=== PATIENT | female | born 1940 | race Caucasian/White ===

== ENCOUNTER → 2017-12-17 | Outpatient (CLI) | payer MEDICARE ==
[2017-12-17 18:24] LABS: Hemoglobin A1C 6.4 % (4.0-6.0)
== END | disposition home or self-care (01) ==
LOC: LABWHC1 09:52
PROVIDERS: ATTEND Internal Medicine Critical Care Medicine
DX: E11.9 Type 2 diabetes mellitus without complications (principal)
CPT/HCPCS: 36415; 82947; 83036

== ENCOUNTER → 2018-07-08 | Outpatient (CLI) | payer MEDICARE ==
[2018-07-08 11:29] LABS: Basophils % (A) 1 %; Eosinophils # (A) 0.2 k/uL (0-0.7); Eosinophils % (A) 3 %; HCT 46.7 % (34.0-46.0); HGB 15.6 gm/dL (11.4-16.0); Lymphocytes # (A) 1.6 k/uL (1.0-4.8); Lymphocytes % (A) 32 %; MCH 30.1 pg (25.0-35.0); MCHC 33.5 g/dL (31.0-37.0); MCV 89.7 fL (80.0-100.0); Mean Platelet Volume 7.3; Monocytes # (A) 0.3 k/uL (0-1.0); Monocytes % (A) 6 %; Neutrophils # (A) 2.9 k/uL (1.3-7.7); Neutrophils % (A) 56 %; Platelet Count 154 k/uL (150-450); RDW 13.1 % (11.5-15.5); WBC 5.2 k/uL (3.8-10.6)
[2018-07-08 17:19] LABS: Albumin 4.3 g/dL (3.80-4.90); Albumin/Globulin Ratio 2.05 (1.20-2.10); Anion Gap 8.5 mmol/L (4.00-12.00); Calcium 9.7 mg/dL (8.7-10.3); Carbon Dioxide 27.5 mmol/L (21.6-31.8); Globulin 2.1 g/dL (2.1-3.7); LDL Cholesterol,Calculated 67.8 mg/dL (0.0-131.0); Potassium 4.1 mmol/L (3.5-5.5); Total Bilirubin 0.7 mg/dL (0.3-1.2); Total Protein 6.4 g/dL (6.2-8.2); VLDL Calculation 24.2 mg/dL (5.00-40.00)
[2018-07-08 17:26] LABS: T4, Free (Free Thyroxine) 1.1 ng/dL (0.80-1.80)
[2018-07-08 18:15] LABS: Hemoglobin A1C 6.3 % (4.0-6.0)
== END | disposition home or self-care (01) ==
LOC: LABWHC1 09:52
PROVIDERS: ATTEND Internal Medicine Critical Care Medicine
DX: Z00.00 Encounter for general adult medical examination without abnormal findings (principal); E78.5 Hyperlipidemia, unspecified; E11.9 Type 2 diabetes mellitus without complications; K21.9 Gastro-esophageal reflux disease without esophagitis; M81.0 Age-related osteoporosis without current pathological fracture
CPT/HCPCS: 36415; 80053; 80061; 82306; 83036; 84439; 84443; 85025

== ENCOUNTER → 2018-07-25 | Outpatient (CLI) | payer MEDICARE ==
--- NOTE | 2018-07-25 15:02 | MM ---
Reason for exam: additional evaluation requested from prior study. History: Patient is postmenopausal, history of high-risk lesion on a previous biopsy, and had first child at age 37. Family history of breast cancer in mother at age 45 and breast cancer in maternal aunt at age 60. Retro-pectoral silicone gel implants in both breasts, 2013. Physical Findings: Nurse did not find any significant physical abnormalities on exam. MG 3D Diag Mammo Imp W/Cad AIRAM Bilateral CC and MLO view(s) were taken. There are scattered fibroglandular densities. No suspicious calcifications or masses are seen. Implants are intact. These results were verbally communicated with the patient and result sheet given to the patient on 07/25/18. ASSESSMENT: Benign, BI-RAD 2 RECOMMENDATION: Routine screening mammogram of both breasts in 1 year.
== END | disposition home or self-care (01) ==
LOC: RADMAMWWP 14:02
PROVIDERS: ATTEND Internal Medicine Critical Care Medicine
DX: Z08 Encounter for follow-up examination after completed treatment for malignant neoplasm (principal); Z85.3 Personal history of malignant neoplasm of breast
CPT/HCPCS: 77066; G0279; 77062

== ENCOUNTER → 2019-06-24 | Outpatient (CLI) | payer MEDICARE ==
--- NOTE | 2019-06-24 15:53 | BD ---
EXAMINATION TYPE: Axial Bone Density DATE OF EXAM: 06/24/2019 COMPARISON: NONE CLINICAL HISTORY: 79 YR OLD FEMALE....ICD-10 CODE: M89.9 DISORDER OF BONE Height: 61.4 Weight: 131 FRAX RISK QUESTIONS: History of Fracture in Adulthood: YES RISK FACTORS HISTORY OF: HX OF THUMB FX AFTER AGE 51 Active: YES Postmenopausal woman: YES, AT ABOUT 51 YRS OLD If Premenopausal, do you have irregular periods: IN THE PAST FOR A WHILE, NONE NOW Lost more than 2 inches in height since high school: YES Hyperparathyroidism: NO Adrenal Insufficiency: NO MEDICATIONS: Prednisone or other steroids: FOR ILLNESSES ON AND OFF Additional Medications: METFORMIN, REFLUX MEDS, STATIN FOR CHOLESTEROL, CALCIUM X2 DAILY Additional History: DIABETIC, REFLUX COLESTEROL, EXAM MEASUREMENTS: Bone mineral densitometry was performed using the Apollidon System. Bone mineral density as measured about the Lumbar spine is: ----- L1-L4(G/cm2): 1.123 T Score Values are as follows: ----- L1: -0.4 ----- L2: -0.4 ----- L3: 0.3 ----- L4: -0.9 ----- L1-L4: -0.5 Bone mineral density FIRST DEXA STUDY AT [facility] Bone mineral density about the R hip (g/cm2): 0.917 Bone mineral density about the L hip (g/cm2): 0.889 T Score values are as follows: -----R Neck: -1.1 -----L Neck: -1.3 -----R Total: -0.7 -----L Total: -0.9 Bone mineral density FIRST DEXA AT [facility] FRAX%s: THERE IS A 17.7% CHANCE FOR A MAJOR OSTEOPOROTIC FX AND A 3.4% FOR HIP....PROBABILITY FOR F X IN 10 YRS TIME IMPRESSION: No evidence for osteoporosis or osteopenia at this time. NOTE: T-SCORE=SD OF THE YOUNG ADULT MEAN.
== END | disposition home or self-care (01) ==
LOC: RADBDWWP 14:48
PROVIDERS: ATTEND Obstetrics & Gynecology
DX: M89.9 Disorder of bone, unspecified (principal)
CPT/HCPCS: 77080

== ENCOUNTER → 2019-07-01 | Outpatient (CLI) | payer MEDICARE ==
[2019-07-01 11:13] LABS: Basophils % (A) 1 %; Eosinophils # (A) 0.1 k/uL (0-0.7); Eosinophils % (A) 3 %; HCT 46.7 % (34.0-46.0); HGB 15.4 gm/dL (11.4-16.0); Lymphocytes # (A) 1.5 k/uL (1.0-4.8); Lymphocytes % (A) 39 %; MCV 90.9 fL (80.0-100.0); Mean Platelet Volume 6.9; Monocytes # (A) 0.2 k/uL (0-1.0); Monocytes % (A) 6 %; Neutrophils # (A) 1.8 k/uL (1.3-7.7); Neutrophils % (A) 47 %; Platelet Count 189 k/uL (150-450); RBC 5.14 m/uL (3.80-5.40); RDW 12.5 % (11.5-15.5); WBC 3.8 k/uL (3.8-10.6)
[2019-07-01 19:38] LABS: African American GFR (CKD) 96.2 (60.0-200.0); Albumin 4.5 g/dL (3.80-4.90); Albumin/Globulin Ratio 2.14 (1.60-3.17); Anion Gap 7.7 mmol/L (4.00-12.00); BUN/Creat Ratio 27.14 Ratio (12.00-20.00); Calcium 9.7 mg/dL (8.7-10.3); Carbon Dioxide 27.3 mmol/L (21.6-31.8); Chol/HDL Ratio 2.75; Globulin 2.1 g/dL (1.6-3.3); LDL Cholesterol,Calculated 69.2 mg/dL (0.0-131.0); Potassium 3.9 mmol/L (3.5-5.5); Total Bilirubin 0.8 mg/dL (0.2-1.2); Total Protein 6.6 g/dL (6.2-8.2); VLDL Calculation 21.8 mg/dL (5.00-40.00)
[2019-07-01 22:45] LABS: Hemoglobin A1C 6.3 % (4.0-6.0)
== END ==
LOC: LABWHC1 10:07
PROVIDERS: ATTEND Internal Medicine Critical Care Medicine
DX: Z00.00 Encounter for general adult medical examination without abnormal findings (principal); G47.00 Insomnia, unspecified; E11.9 Type 2 diabetes mellitus without complications; K21.9 Gastro-esophageal reflux disease without esophagitis; M19.90 Unspecified osteoarthritis, unspecified site; E78.5 Hyperlipidemia, unspecified; M81.0 Age-related osteoporosis without current pathological fracture
CPT/HCPCS: 36415; 80053; 80061; 82306; 83036; 84439; 84443; 85025

== ENCOUNTER → 2020-03-22 | Outpatient (CLI) | payer MEDICARE ==
--- NOTE | 2020-03-23 06:48 | MR ---
EXAMINATION TYPE: MR knee LT wo con DATE OF EXAM: 03/22/2020 COMPARISON: Outside left knee x-ray March 16, 2020. HISTORY: L knee pain per order. Pain for 6 weeks after working in garden per patient. TECHNIQUE: Multiplanar, multisequence images of the knee is performed without IV contrast. FINDINGS: MEDIAL MENISCUS: Medial extrusion medial meniscus on coronal images. Anterior horn is intact without tear. Posterior horn shows triangular shaped increased signal extends towards central body involving the inferior articular surface sagittal image 24. LATERAL MENISCUS: Anterior and posterior horns are intact without tear. CRUCIATE LIGAMENTS: The anterior and posterior cruciate ligaments are intact and unremarkable. COLLATERAL LIGAMENTS: The medial collateral ligament and lateral collateral ligament complex are inta ct and unremarkable. EXTENSOR MECHANISM: Visualized quadriceps and patellar tendons are intact. EFFUSION: No significant suprapatellar joint effusion. POPLITEAL CYST: Small popliteal/brewer cyst. TRICOMPARTMENT SPACES: Moderate borderline severe patellofemoral compartment narrowing with mild to m oderate spurring. Mild to moderate medial and lateral tibial femoral compartment narrowing and spurri ng. CARTILAGE: Significant chondromalacia patella with full-thickness cartilaginous loss greatest over th e medial aspect of the posterior patellar pole. BONE MARROW SIGNAL: Heterogeneous diminished T1 and increased T2 signal medial aspect posterior hogan lar pole noted at site of full-thickness cartilaginous loss.. OTHER: No additional significant abnormality is appreciated. IMPRESSION: 1. Full-thickness tear posterior horn of medial meniscus extending into central body. 2. 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 Fairly moderate degenerat brice changes medial tibiofemoral compartment. 3. Small popliteal cyst.
== END | disposition home or self-care (01) ==
LOC: RADMRIMAIN 13:21
PROVIDERS: ATTEND Orthopaedic Surgery
DX: S83.242A Other tear of medial meniscus, current injury, left knee, initial encounter (principal); M17.12 Unilateral primary osteoarthritis, left knee

== ENCOUNTER → 2020-04-02 | Outpatient (CLI) | payer MEDICARE ==
[2020-04-02 14:17] LABS: Basophils % (A) 1 %; Eosinophils # (A) 0.2 k/uL (0-0.7); Eosinophils % (A) 4 %; HCT 45.5 % (34.0-46.0); HGB 14.7 gm/dL (11.4-16.0); Lymphocytes # (A) 1.6 k/uL (1.0-4.8); Lymphocytes % (A) 36 %; MCHC 32.3 g/dL (31.0-37.0); Mean Platelet Volume 8.4; Monocytes # (A) 0.4 k/uL (0-1.0); Monocytes % (A) 8 %; Neutrophils # (A) 2.3 k/uL (1.3-7.7); Neutrophils % (A) 49 %; Platelet Count 161 k/uL (150-450); Potassium 4.5 mmol/L (3.5-5.1); RBC 5.05 m/uL (3.80-5.40); RDW 12.7 % (11.5-15.5); WBC 4.6 k/uL (3.8-10.6)
== END | disposition home or self-care (01) ==
LOC: LABPAT 12:08
PROVIDERS: ATTEND Orthopaedic Surgery
DX: Z01.818 Encounter for other preprocedural examination (principal); M23.92 Unspecified internal derangement of left knee
CPT/HCPCS: 80051; 85025; 93005

== ENCOUNTER 2020-04-15 12:35 | Day surgery (SDC) | payer MEDICARE ==
[2020-04-08 10:13] VITALS: BMI 22.1
--- NOTE | 2020-04-14 20:32 | HP ---
HISTORY AND PHYSICAL DATE OF SURGERY: 04/15/2020 Miriam Campuzano is a 79-year-old patient seen with progressive left knee pain. We discussed options for treatment. She elected to proceed with arthroscopy. Consent was obtained. PAST MEDICAL HISTORY: Hypertension, hyperlipidemia, [id number] diabetes. PAST SURGICAL HISTORY: Cholecystectomy. DAILY MEDICATIONS: Metformin, Tenormin, Zocor. ALLERGIES: CODEINE. SOCIAL HISTORY: She denies tobacco use. PHYSICAL EVALUATION OF THE LEFT KNEE: Range of motion is 0 to 130. There is mild effusion. Tenderness, medial joint line. Positive medial Fannie's. Ligaments are stable. Hip rotation without pain. Distal neurovascular exam intact. RADIOGRAPHS: Left knee radiographs revealed moderate osteoarthritis. MRI of the left knee revealed medial meniscal tear. IMPRESSION: 1. Internal derangement of the left knee with medial meniscal tear. 2. Hypertension. 3. Hyperlipidemia. PLAN: Left knee arthroscopy with partial meniscectomy and partial synovectomy and debridement. MMODL / IJN: [id number] /
[~2020-04-15 12:35] MED LIST: DEXAMETHASONE SOD PHOSPHATE 10 MG/ML 1 ML VIAL IV ONE; HYDROmorphone 0.5 MG/0.5 ML SYRINGE IVP PRN; LACTATED RINGERS 1,000 ML IV SCH; ONDANSETRON 4 MG/2 ML VIAL IVP ONE
[2020-04-15 13:09] LABS: Glucose,Whole Blood 126 mg/dL (75-99)
[2020-04-15] MEDS ORDERED: LIDOCAINE 1% (10MG/ML) FOR IV START INTRADERMA ONE (13:12)
[2020-04-15] MEDS ORDERED: LIDOCAINE 1% INJ 10MG/ML (20 ML MDV) ONE (13:18)
[2020-04-15] MEDS ORDERED: PROPOFOL 10 MG/ML 20 ML VIAL IV ONE (13:18)
[2020-04-15] MEDS ORDERED: MIDAZOLAM 2 MG/2 ML VIAL ONE (13:18)
[2020-04-15] MEDS ORDERED: fentaNYL (PF) 50 MCG/ML 2 ML AMP ONE (13:18)
[2020-04-15] MEDS ORDERED: BUPIVACAINE (PF) 0.25% 30 ML VIAL INTRAARTIC ONE (13:45)
[2020-04-15 14:11] VITALS: TEMP 97
--- NOTE | 2020-04-15 14:11 | P.OP ---
Date of Procedure: 04/15/20 Preoperative Diagnosis: Internal derangement left knee Postoperative Diagnosis: 1. Tear medial meniscus left knee 2. Grade 2/3 chondromalacia medial femoral condyle left knee 3. Reactive synovitis medial, lateral and suprapatellar compartments left knee Procedure(s) Performed: 1. Arthroscopic partial medial meniscectomy left knee 2. Arthroscopic chondroplasty medial femoral condyle left knee 3. Arthroscopic partial synovectomy medial, lateral and suprapatellar compartments left knee Anesthesia: GETA, local Surgeon: Elías Mckay Estimated Blood Loss (ml): 7 Pathology: none sent Condition: stable Disposition: PACU Indications for Procedure: 79-year-old patient seen with progressive left knee pain. After treatment options were discussed, she elected to proceed with arthroscopy. Operative Findings: See description of procedure Description of Procedure: Patient was taken to the operative suite. Patient underwent a general anesthetic by the department of anesthesia. Patient was given preoperative antibiotics. The left lower extremity was placed in a well-padded arthroscopic leg eduardo. The left leg was prepped and draped in the normal sterile orthopedic fashion. A lateral parapatellar and suprapatellar incision was made. Trochars were inserted. Arthroscopy was initiated. Suprapatellar pouch revealed diffuse thick reactive synovitis. The patellofemoral joint appeared to articulate congruently. There was grade 3 chondral malacia of the patella, no osteochondral tears were present.. The scope was guided into the medial gutter. No loose bodies or plica were identified. The scope was then guided into the medial compartment. A medial parapatellar incision was made. Trocar inserted followed by probe. There was a complex tear posterior horn and midbody medial meniscus. There were grade 2/3 chondromalacia changes of the medial femoral condyle with some osteochondral flap tears present. There was thick reactive synovitis anteriorly. I performed a partial medial meniscectomy. I performed a chondroplasty of the medial femoral condyle. I performed a partial synovectomy decompressing the reactive synovitis. The residual meniscus was stable. The residual osteochondral surface appeared stable. There was good decompression of the synovitis. Scope and probe were then guided into the intercondylar notch. Cruciates were identified, probed and found to be stable. The scope and probe were then guided into lateral compartment. There were grade 1 chondromalacia changes involving the lateral compartment with no osteochondral tears present. There was some mild fraying superficially of the midbody lateral meniscus. There was thick reactive synovitis anteriorly. A motorize shaver was introduced I debrided that mild fraying of the meniscus. I now performed a partial s ynovectomy decompressing reactive synovitis. Shaver was removed. There was good decompression of the synovitis. The scope was in guided back into the suprapatellar compartment. I introduced a motorized shaver into the super patellar compartment. I debrided some piecemeal fragments of meniscus I encountered. I performed a partial synovectomy decompressing reactive synovitis. The shaver was removed. I now took one more look on the entire knee, no residual debris. Instruments were now removed from the joint. The joint was infiltrated with .25% Marcaine. Steri-Strips were applied to the portal sites. Sterile dressings were applied. The patient was placed into a DAYDAY hose. No tourniquet was utilized. The patient was awakened, transferred to a bed and taken to recovery stable satisfactory condition.
[2020-04-15 15:03] VITALS: RESP 18
[2020-04-15 15:20] VITALS: BP 154/71; PULSE 73
== END 2020-04-15 15:35 | disposition home or self-care (01) ==
LOC: OR 12:35
PROVIDERS: ATTEND Orthopaedic Surgery
DX: S83.232A Complex tear of medial meniscus, current injury, left knee, initial encounter (principal); X58.XXXA Exposure to other specified factors, initial encounter; M22.42 Chondromalacia patellae, left knee; M65.862 Other synovitis and tenosynovitis, left lower leg; M23.362 Other meniscus derangements, other lateral meniscus, left knee; I10 Essential (primary) hypertension; E78.5 Hyperlipidemia, unspecified; E11.9 Type 2 diabetes mellitus without complications; Z79.84 Long term (current) use of oral hypoglycemic drugs; Z79.899 Other long term (current) drug therapy; Z88.5 Allergy status to narcotic agent; Z90.49 Acquired absence of other specified parts of digestive tract; Z90.13 Acquired absence of bilateral breasts and nipples; Z85.3 Personal history of malignant neoplasm of breast
CPT/HCPCS: 29881; 29876; J2250; J1100; J2405; J0690; J2001; J3010; J2704

== ENCOUNTER 2020-05-12 10:36 | Observation (INO) | payer MEDICARE ==
--- NOTE | 2020-05-12 10:46 | ED ---
Nausea/Vomiting/Diarrhea HPI - General Chief complaint: Nausea/Vomiting/Diarrhea Stated complaint: Diarrhea Time Seen by Provider: 05/12/20 10:46 Source: patient Mode of arrival: ambulatory Limitations: no limitations - History of Present Illness Initial comments: Patient is a 79-year-old female presenting to the emergency department with a chief complaint of abdominal cramping and diarrhea. Patient states 5 days ago she finished a ten-day course of Augmentin following a tooth extraction. States she was also eating bland food for about 2 weeks and when she finished the Augmentin on Sunday, she also ate potato wedges for the first time and soon a fter developed diarrhea. Patient reports she has been having diarrhea for approximately 5 days. Does report some improvement yesterday although it returned today. Patient does report taking [id number] Imodium and Pepto- Bismol with minimal improvement of symptoms. She also reports abdominal cramping sensation going across the abdomen. Patient states the diarrhea has turned slightly more solid over the last few days. States the diarrhea is yellowish and has a foul smell. Denies hematuria, hematochezia or melena. Denies any nausea or vomiting. Denies any vaginal or urinary symptoms. Denies chest pain, back pain, shortness of breath. Denies any night sweats fevers or chills. Surgical history of appendectomy. - Related Data Home Medications Medication Instructions Recorded Confirmed Calcium Carbonate/Vitamin D3 1 tab PO DAILY 06/18/17 05/12/20 [Calcium 500-Vit D3 600 Tablet] Simvastatin [Zocor] 20 mg PO Q48H 06/18/17 05/12/20 Zolpidem [Ambien] 10 mg PO HS 06/18/17 05/12/20 atenoloL [Tenormin] 25 mg PO DAILY 06/18/17 05/12/20 metFORMIN HCL [Glucophage] 750 mg PO BID 06/18/17 05/12/20 Cetirizine HCl [Zyrtec] 10 mg PO DAILY 04/08/20 05/12/20 Ibuprofen [Motrin Ib] 200 - 400 mg PO Q6H PRN 04/08/20 05/12/20 Multivit-Min/Iron/Folic/Lutein 1 tab PO DAILY 04/08/20 05/12/20 [Centrum Silver Women Tablet] Allergies Allergy/AdvReac Type Severity Reaction Status Date / Time codeine AdvReac Nausea & Verified 05/12/20 11:50 Vomiting Review of Systems ROS Statement: Those systems with pertinent positive or pertinent negative responses have been documented in the HPI. ROS Other: All systems not noted in ROS Statement are negative. Past Medical History Past Medical History: Diabetes Mellitus, Hyperlipidemia, Hypertension History of Any Multi-Drug Resistant Organisms: None Reported Past Surgical History: Appendectomy Additional Past Surgical History / Comment(s): Bilateral Mastectomy 1995, L knee surgery, oral surgery Past Anesthesia/Blood Transfusion Reactions: No Reported Reaction Past Psychological History: No Psychological Hx Reported Smoking Status: Former smoker Past Alcohol Use History: None Reported Past Drug Use History: None Reported General Exam Limitations: no limitations General appearance: alert, in no apparent distress Head exam: Present: atraumatic, normocephalic, normal inspection Eye exam: Present: normal appearance, PERRL, EOMI Pupils: Present: normal accommodation ENT exam: Present: normal exam, normal oropharynx, mucous membranes dry, mucous membranes moist Neck exam: Present: normal inspection, full ROM. Absent: tenderness Respiratory exam: Present: normal lung sounds bilaterally. Absent: respiratory distress, wheezes, rales Cardiovascular Exam: Present: regular rate, normal rhythm, normal heart sounds GI/Abdominal exam: Present: soft, tenderness (Mild diffuse pain across the abdomen). Absent: distended, guarding, rebound, rigid Extremities exam: Present: normal inspection, full ROM, normal capillary refill. Absent: tenderness Back exam: Present: normal inspection, full ROM. Absent: tenderness, CVA te nderness (R), CVA tenderness (L) Neurological exam: Present: alert, oriented X3, normal gait Psychiatric exam: Present: normal affect, normal mood Skin exam: Present: warm, dry, intact, normal color Course Vital Signs 05/12/20 10:38 Temperature 98.4 F Pulse Rate 91 Respiratory 18 Rate Blood Pressure 135/72 O2 Sat by Pulse 97 Oximetry - Reevaluation(s) Reevaluation #1: 05/12/20 11:21 Medical record reviewed 05/12/20 11:21 Medical Decision Making - Medical Decision Making Patient is a 79-year-old female presenting to the emergency department with a chief complaint of diarrhea and abdominal pain. On physical examination, she has some diffuse abdominal pain. There is a concern for possible C. diff considering the patient has been taking antibiotics for about 2 weeks prior to the onset of symptoms. CBC CMP is unremarkable. She was given IV fluids. CT of abdomen and pelvis reveals colitis. Patient is not able to give a stool sample at this time. Patient will be admitted for further medical management. Case discussed with Dr. Gomez. Admitted physician is Dr.Sheet HARO on consult - Lab Data Result diagrams: 05/12/20 11:13 05/12/20 11:13 Lab Results 05/12/20 05/12/20 05/12/20 Range/Units 11:13 11:13 11:13 WBC 8.6 (3.8-10.6) k/uL RBC 4.94 (3.80-5.40) m/uL Hgb 14.4 (11.4-16.0) gm/dL Hct 44.2 (34.0-46.0) % MCV 89.6 (80.0-100.0) fL MCH 29.2 (25.0-35.0) pg MCHC 32.6 (31.0-37.0) g/dL RDW 13.1 (11.5-15.5) % Plt Count 239 (150-450) k/uL Neutrophils % 73 % Lymphocytes % 15 % Monocytes % 8 % Eosinophils % 2 % Basophils % 0 % Neutrophils # 6.2 (1.3-7.7) k/uL Lymphocytes # 1.3 (1.0-4.8) k/uL Monocytes # 0.7 (0-1.0) k/uL Eosinophils # 0.2 (0-0.7) k/uL Basophils # 0.0 (0-0.2) k/uL Sodium 137 (137-145) mmol/L Potassium 3.6 (3.5-5.1) mmol/L Chloride 105 (98-107) mmol/L Carbon Dioxide 24 (22-30) mmol/L Anion Gap 8 mmol/L BUN 13 (7-17) mg/dL Creatinine 0.59 (0.52-1.04) mg/dL Est GFR (CKD-EPI)AfAm >90 (>60 ml/min/1.73 sqM) Est GFR (CKD-EPI)NonAf 88 (>60 ml/min/1.73 sqM) Glucose 138 H (74-99) mg/dL Calcium 9.2 (8.4-10.2) mg/dL Total Bilirubin 0.6 (0.2-1.3) mg/dL AST 21 (14-36) U/L ALT 12 (4-34) U/L Alkaline Phosphatase 78 (38-126) U/L Troponin I (0.000-0.034) ng/mL Total Protein 6.5 (6.3-8.2) g/dL Albumin 3.8 (3.5-5.0) g/dL Lipase 33 (23-300) U/L Urine Color Yellow Urine Appearance Clear (Clear) Urine pH 5.5 (5.0-8.0) Ur Specific [place] 1.015 (1.001-1.035) Urine Protein Negative (Negative) Urine Glucose (UA) Negative (Negative) Urine Ketones 1+ H (Negative) Urine Blood Trace H (Negative) Urine Nitrite Negative (Negative) Urine Bilirubin Negative (Negative) Urine Urobilinogen <2.0 (<2.0) mg/dL Ur Leukocyte Esterase Large H (Negative) Urine RBC 1 (0-5) /hpf Urine WBC 4 (0-5) /hpf Ur Squamous Epith Cells 2 (0-4) /hpf Urine Bacteria Rare H (None) /hpf Hyaline Casts 7 H (0-2) /lpf Urine Mucus Moderate H (None) /hpf 10/14/20 Range/Units 11:13 WBC (3.8-10.6) k/uL RBC (3.80-5.40) m/uL Hgb (11.4-16.0) gm/dL Hct (34.0-46.0) % MCV (80.0-100.0) fL MCH (25.0-35.0) pg MCHC (31.0-37.0) g/dL RDW (11.5-15.5) % Plt Count (150-450) k/uL Neutrophils % % Lymphocytes % % Monocytes % % Eosinophils % % Basophils % % Neutrophils # (1.3-7.7) k/uL Lymphocytes # (1.0-4.8) k/uL Monocytes # (0-1.0) k/uL Eosinophils # (0-0.7) k/uL Basophils # (0-0.2) k/uL Sodium (137-145) mmol/L Potassium (3.5-5.1) mmol/L Chloride (98-107) mmol/L Carbon Dioxide (22-30) mmol/L Anion Gap mmol/L BUN (7-17) mg/dL Creatinine (0.52-1.04) mg/dL Est GFR (CKD-EPI)AfAm (>60 ml/min/1.73 sqM) Est GFR (CKD-EPI)NonAf (>60 ml/min/1.73 sqM) Glucose (74-99) mg/dL Calcium (8.4-10.2) mg/dL Total Bilirubin (0.2-1.3) mg/dL AST (14-36) U/L ALT (4-34) U/L Alkaline Phosphatase (38-126) U/L Troponin I <0.012 (0.000-0.034) ng/mL Total Protein (6.3-8.2) g/dL Albumin (3.5-5.0) g/dL Lipase (23-300) U/L Urine Color Urine Appearance (Clear) Urine pH (5.0-8.0) Ur Specific [place] (1.001-1.035) Urine Protein (Negative) Urine Glucose (UA) (Negative) Urine Ketones (Negative) Urine Blood (Negative) Urine Nitrite (Negative) Urine Bilirubin (Negative) Urine Urobilinogen (<2.0) mg/dL Ur Leukocyte Esterase (Negative) Urine RBC (0-5) /hpf Urine WBC (0-5) /hpf Ur Squamous Epith Cells (0-4) /hpf Urine Bacteria (None) /hpf Hyaline Casts (0-2) /lpf Urine Mucus (None) /hpf - EKG Data EKG Comments: Sinus rhythm and no ST or T-wave changes. Ventricular rate 78, GA 136, QRS 86, QTC 424. Disposition Clinical Impression: Colitis, Abdominal pain, Diarrhea Disposition: ADMITTED IP TO THIS HOSP Condition: Good Instructions (If sedation given, give patient instructions): Abdominal Pain (ED) Is patient prescribed a controlled substance at d/c from ED?: No Referrals: Magen Patterson DO [Primary Care Provider] - 1-2 days Time of Disposition: 13:25
[2020-05-12] MEDS ORDERED: SODIUM CHLORIDE 0.9% 1,000 ML IV STA (10:47)
[2020-05-12 12:04] LABS: Basophils % (A) 0 %; Eosinophils # (A) 0.2 k/uL (0-0.7); Eosinophils % (A) 2 %; HCT 44.2 % (34.0-46.0); HGB 14.4 gm/dL (11.4-16.0); Lymphocytes # (A) 1.3 k/uL (1.0-4.8); Lymphocytes % (A) 15 %; MCH 29.2 pg (25.0-35.0); MCHC 32.6 g/dL (31.0-37.0); MCV 89.6 fL (80.0-100.0); Mean Platelet Volume 7.2; Monocytes # (A) 0.7 k/uL (0-1.0); Monocytes % (A) 8 %; Neutrophils # (A) 6.2 k/uL (1.3-7.7); Neutrophils % (A) 73 %; Platelet Count 239 k/uL (150-450); RBC 4.94 m/uL (3.80-5.40); RDW 13.1 % (11.5-15.5); WBC 8.6 k/uL (3.8-10.6)
[2020-05-12 12:11] LABS: ALT 12 U/L (4-34); AST 21 U/L (14-36); African American GFR (CKD) >90 (>60 ml/min/1.73 sqM); Albumin 3.8 g/dL (3.5-5.0); Alkaline Phosphatase 78 U/L (38-126); Anion Gap 8 mmol/L; Blood Urea Nitrogen 13 mg/dL (7-17); Calcium 9.2 mg/dL (8.4-10.2); Carbon Dioxide 24 mmol/L (22-30); Chloride 105 mmol/L (98-107); Glucose 138 mg/dL (74-99); Lipase 33 U/L (23-300); Non-African American GFR(CKD) 88 (>60 ml/min/1.73 sqM); Potassium 3.6 mmol/L (3.5-5.1); Sodium 137 mmol/L (137-145); Total Bilirubin 0.6 mg/dL (0.2-1.3); Total Protein 6.5 g/dL (6.3-8.2)
[2020-05-12 12:22] LABS: Appearance,Urine Clear (Clear); Bacteria,Urine Rare /hpf; Bilirubin,Urine Negative (Negative); Blood,Urine Trace (Negative); Color,Urine Yellow; Glucose,Urine (UA) Negative (Negative); Hyaline Casts,Urine 7 /lpf (0-2); Ketones,Urine 1+ (Negative); Leukocyte Esterase,Urine Large (Negative); Mucus,Urine Moderate /hpf; Nitrite,Urine Negative (Negative); PH, Urine 5.5 (5.0-8.0); Protein,Urine Negative (Negative); RBC,Urine 1 /hpf (0-5); Specific Gravity,Urine 1.015 (1.001-1.035); Squamous Epithelial Cell,Urine 2 /hpf (0-4); Urobilinogen,Urine <2.0 mg/dL (<2.0); WBC,Urine 4 /hpf (0-5)
--- NOTE | 2020-05-12 13:03 | CT ---
EXAMINATION TYPE: CT abdomen pelvis w con DATE OF EXAM: 05/12/2020 COMPARISON: Pain HISTORY: diarrhea, mid abdominal pain CT DLP: 690.5 mGycm Automated exposure control for dose reduction was used. CONTRAST: CT scan of the abdomen pelvis is performed with IV Contrast, patient injected with 100 mL of Isovue 3 70. FINDINGS- LUNG BASES-emphysematous changes at the lung bases with areas of subsegmental consolidation most typi vinay of atelectasis.. LIVER/GB- No gross abnormality is appreciated surgical clips in the gallbladder fossa.. PANCREAS- No gross abnormality is seen. SPLEEN-splenic granuloma are seen here. Small hypodensities within the spleen are too small to charac terize.. ADRENALS- No gross abnormality is seen. KIDNEYS/BLADDER- no hydronephrosis or nephrolithiasis. Hypodensities within the kidneys are too small to characterize. BOWEL-there is diffuse colonic wall thickening with mild pericolonic inflammatory change correlate fo r a colitis. The SMA and SMV are intact. No moderate-sized hiatal hernia. Surgical clips near the cec um correlate for previous appendectomy. LYMPH NODES- No greater than 1cm abdominal or pelvic lymph nodes areappreciated. OSSEOUS STRUCTURES-severe degenerative disc disease with hypertrophic spurring at multiple levels.. OTHER- aorta of normal caliber. No free fluid or free air. Small periumbilical fat-containing hernia . IMPRESSION- 1. Few is colonic wall thickening with inflammatory changes correlate for colitis. Differential diagn osis would include infectious colitis, inflammatory bowel disease, although ischemic colitis not excl uded. The SMA does appear to enhance normally correlate clinically. 2. Splenic granuloma with subcentimeter hypodensities too small to characterize could be followed wit h ultrasound. 3. Hiatal hernia.
[2020-05-12] MEDS ORDERED: NALOXONE 0.4 MG/ML 1 ML VIAL IV PRN (13:25)
[2020-05-12] MEDS ORDERED: LORazepam 2 MG/ML INJ IV PRN (13:25)
[2020-05-12] MEDS ORDERED: ONDANSETRON 4 MG/2 ML VIAL IVP PRN (13:25)
[2020-05-12] MEDS ORDERED: MORPHINE SULFATE 2 MG/ML SYRINGE IVP PRN (13:29)
[2020-05-12] MEDS: SODIUM CHLORIDE 0.9% 1,000 ML IV SCH (13:58)
[2020-05-12 16:42] LABS: Glucose,Whole Blood 147 mg/dL (75-99)
[2020-05-12] MEDS: HEPARIN SODIUM,PORCINE 5,000 UNIT/ML 1 ML VIAL SQ SCH (20:55)
[2020-05-12] MEDS ORDERED: FAMOTIDINE 20 MG/2 ML VIAL IV SCH (21:00)
[2020-05-12] MEDS ORDERED: ZOLPIDEM 10 MG TAB PO SCH (21:00)
[2020-05-12 21:30] LABS: Glucose,Whole Blood 143 mg/dL (75-99)
[2020-05-12] MEDS ORDERED: VANCOMYCIN 125 MG CAPSULE PO ONE (21:30)
--- NOTE | 2020-05-12 21:43 | P.HPIM ---
History of Present Illness this is a pleasant 79 years old Females with multiple medical problems as below presents with five days of abdominal pain . her pain mainly willy-umbilical , felt like cramping associated with bowel movements , about 8/10 in severity. associated with 3-4 loose bowel movements per day. no blood in stool with some nausea. no postural symptoms . pt was recently treated with antibiotic for her right upper teeth infection and root canal treatment . also about one one month ago she was treated for left knee medial meniscal tear, she is status post partial medial meniscectomy left knee pt denies smoking , alcohol or illicit drugs. Review of Systems CONSTITUTIONAL: No fever, no malaise, no fatigue. HEENT: No recent visual problems or hearing problems. Denied any sore throat. CARDIOVASCULAR: No orthopnea, PND, no palpitations, no syncope. PULMONARY: No shortness of breath, no cough, no hemoptysis. -GASTROINTESTINAL: as above NEUROLOGICAL: No headaches, no weakness, no numbness. HEMATOLOGICAL: Denies any bleeding or petechiae. GENITOURINARY: Denies any burning micturition, frequency, or urgency. MUSCULOSKELETAL/RHEUMATOLOGICAL: Denies any joint pain, swelling, or any muscle pain. ENDOCRINE: Denies any polyuria or polydipsia. Past Medical History Past Medical History: Diabetes Mellitus, Hyperlipidemia, Hypertension History of Any Multi-Drug Resistant Organisms: None Reported Past Surgical History: Appendectomy Additional Past Surgical History / Comment(s): Bilateral Mastectomy 1995, L knee surgery, oral surgery Past Anesthesia/Blood Transfusion Reactions: No Reported Reaction Past Psychological History: No Psychological Hx Reported Smoking Status: Former smoker Past Alcohol Use History: None Reported Past Drug Use History: None Reported - Past Family History Mother Family Medical History: Cancer Additional Family Medical History / Comment(s): Mother had bilateral breast cancer at the age of 48yrs and from this at the age of 54yrs. Medications and Allergies Home Medications Medication Instructions Recorded Confirmed Type Calcium Carbonate/Vitamin D3 1 tab PO DAILY 06/18/17 05/12/20 History [Calcium 500-Vit D3 600 Tablet] Simvastatin [Zocor] 20 mg PO Q48H 06/18/17 05/12/20 History Zolpidem [Ambien] 10 mg PO HS 06/18/17 05/12/20 History atenoloL [Tenormin] 25 mg PO DAILY 06/18/17 05/12/20 History metFORMIN HCL [Glucophage] 750 mg PO BID 06/18/17 05/12/20 History Cetirizine HCl [Zyrtec] 10 mg PO DAILY 04/08/20 05/12/20 History Ibuprofen [Motrin Ib] 200 - 400 mg PO Q6H PRN 04/08/20 05/12/20 History Multivit-Min/Iron/Folic/Lutein 1 tab PO DAILY 04/08/20 05/12/20 History [Centrum Silver Women Tablet] Allergies Allergy/AdvReac Type Severity Reaction Status Date / Time codeine AdvReac Nausea & Verified 05/12/20 11:50 Vomiting Physical Exam Vitals: Vital Signs Temp Pulse Resp BP Pulse Ox 05/12/20 10:38 98.4 F 91 18 135/72 97 Intake and Output 05/11/20 05/12/20 05/12/20 22:59 06:59 14:59 Other: Voiding Method Toilet Weight 55.338 kg GENERAL: The patient is alert and oriented x3, not in any acute distress. Well developed, well nourished. HEENT: Pupils are round and equally reacting to light. EOMI. No scleral icterus. No conjunctival pallor. Normocephalic, atraumatic. No pharyngeal erythema. No thyromegaly. CARDIOVASCULAR: S1 and S2 present. No murmurs, rubs, or gallops. PULMONARY: Chest is clear to auscultation, no wheezing or crackles. -ABDOMEN: Soft,periumbilical tenderness, no rebound tenderness or guarding, nondistended, normoactive bowel sounds. No palpable organomegaly. MUSCULOSKELETAL: No joint swelling or deformity. EXTREMITIES: No cyanosis, clubbing, or pedal edema. NEUROLOGICAL: Gross neurological examination did not reveal any focal deficits. SKIN: No rashes. No petechiae Results CBC & Chem 7: 05/12/20 11:13 05/12/20 11:13 Labs: Abnormal Lab Results - Last 24 Hours (Table) 05/12/20 05/12/20 Range/Units 11:13 11:13 Glucose 138 H (74-99) mg/dL Urine Ketones 1+ H (Negative) Urine Blood Trace H (Negative) Ur Leukocyte Esterase Large H (Negative) Urine Bacteria Rare H (None) /hpf Hyaline Casts 7 H (0-2) /lpf Urine Mucus Moderate H (None) /hpf Assessment and Plan Assessment: c. diff colitis recent history of dental procedure of her right upper tooth recent history of left knee medial meniscal tear, status post partial medial meniscectomy left knee diabetes mellitus hyperlipidemia hypertension osteoarthritis Plan: this is a pleasant 79 yo F who presents with c diff colitis , continue with oral vancomycin, GI and Surgical consult, iv fluid Labs and medication were reviewed.. Continue same treatment. Continue with symptomatic treatment. Resume home medication. Monitor lytes and vitals. DVT and GI prophylaxis. Further recommendations depends on the clinical course of the patient DVT prophylaxis: Subcutaneous heparin GI Prophylaxis: Ppi PT/OT: Pending Prognosis is guarded
[2020-05-12] MEDS ORDERED: CHERRY FLAVOR 60 ML BOTTLE PO SCH (22:00)
[2020-05-12] MEDS ORDERED: VANCOMYCIN 125 MG CAPSULE PO SCH (22:00)
[2020-05-12] MEDS: ZOLPIDEM 5 MG TAB PO SCH (22:42)
[2020-05-13] MEDS: SODIUM CHLORIDE 0.9% 1,000 ML IV SCH ×2 (02:07→15:56)
[2020-05-13 06:05] LABS: Glucose,Whole Blood 109 mg/dL (75-99)
[2020-05-13] MEDS: VANCOMYCIN 125 MG CAPSULE PO SCH ×4 (06:07→22:34)
[2020-05-13] MEDS ORDERED: ATORVASTATIN 10 MG TAB PO SCH (09:00)
[2020-05-13] MEDS ORDERED: PANTOPRAZOLE 40 MG/10 ML VIAL IVP SCH (09:00)
--- NOTE | 2020-05-13 09:10 | P.PN ---
Subjective this is a pleasant 79 years old Females with multiple medical problems as below presents with five days of abdominal pain . her pain mainly willy-umbilical , felt like cramping associated with bowel movements , about 8/10 in severity. associated with 3-4 loose bowel movements per day. no blood in stool with some nausea. no postural symptoms . pt was recently treated with antibiotic for her right upper teeth infection and root canal treatment . also about one one month ago she was treated for left knee medial meniscal tear, she is status post partial medial meniscectomy left knee pt denies smoking , alcohol or illicit drugs. 05/13/20 patient is awake alert, no distress. She presents with sepsis and diarrhea found to have C. diff colitis with this came back positive and patient was started on oral vancomycin yesterday to 250 mg scheduled. last night she had 2-3 bouts of diarrhea and one this morning, patient states that whenever she eats she has a bowel movement.she has crampy abdominal pain about 6/10 that comes on with bowel movement and is is down after that and resolves. she is tolerating simple diet at no nausea vomiting.labs from today are pending. GI and surgery teams on the case Review of Systems CONSTITUTIONAL: No fever, no malaise, no fatigue. HEENT: No recent visual problems or hearing problems. Denied any sore throat. CARDIOVASCULAR: No orthopnea, PND, no palpitations, no syncope. PULMONARY: No shortness of breath, no cough, no hemoptysis. -GASTROINTESTINAL: as above NEUROLOGICAL: No headaches, no weakness, no numbness. HEMATOLOGICAL: Denies any bleeding or petechiae. GENITOURINARY: Denies any burning micturition, frequency, or urgency. MUSCULOSKELETAL/RHEUMATOLOGICAL: Denies any joint pain, swelling, or any muscle pain. ENDOCRINE: Denies any polyuria or polydipsia. Active Medications Generic Name Dose Route Start Last Admin Trade Name Freq PRN Reason Stop Dose Admin Atenolol 25 mg 05/13/20 09:00 Atenolol 25 Mg Tab PO DAILY [facility] Atorvastatin Calcium 10 mg 05/13/20 09:00 Atorvastatin 10 Mg Tab PO Q48H [facility] Calcium Carbonate 1 each 05/13/20 09:00 Calcium Carb-Vit D 500mg-200un 1 Each Tab PO DAILY [facility] Cholestyramine Resin 4 gm 05/13/20 10:00 Cholestyramine (With Sugar) 4 Gm Packet PO BID@1000,1800 [facility] Heparin Sodium (Porcine) 5,000 unit 05/12/20 21:00 05/12/20 20:55 Heparin Sodium,Porcine 5,000 Unit/Ml 1 Ml Vial SQ 5,000 unit Q12HR JOSUÉ Administration Sodium Chloride 1,000 mls @ 75 mls/hr 05/12/20 13:30 05/13/20 02:07 Saline 0.9% IV 75 mls/hr .[id number] JOSUÉ Administration Loratadine 10 mg 05/13/20 09:00 Loratadine 10 Mg Tab PO DAILY [facility] Lorazepam 0.5 mg 05/12/20 13:25 Lorazepam 2 Mg/Ml Inj IV Q6HR PRN Anxiety Morphine Sulfate 2 mg 05/12/20 13:29 Morphine Sulfate 2 Mg/Ml Syringe IVP Q4H PRN Pain/Discomfort Multivitamins 1 each 05/13/20 09:00 Multivitamins, Thera 1 Each Tab PO DAILY [facility] Naloxone HCl 0.2 mg 05/12/20 13:25 Naloxone 0.4 Mg/Ml 1 Ml Vial IV Q2M PRN Opioid Reversal Ondansetron HCl 4 mg 05/12/20 13:25 Ondansetron 4 Mg/2 Ml Vial IVP Q8HR PRN Nausea And Vomiting Pantoprazole Sodium 40 mg 05/13/20 09:00 Pantoprazole 40 Mg/10 Ml Vial IVP DAILY [facility] Vancomycin HCl 250 mg 05/13/20 06:00 05/13/20 06:07 Vancomycin 125 Mg Capsule PO 250 mg QID JOSUÉ Administration Zolpidem Tartrate 10 mg 05/12/20 22:34 05/12/20 22:42 Zolpidem 5 Mg Tab PO 10 mg HS JOSUÉ Administration Objective - Vital Signs Vital signs: Vital Signs Temp 98.1 F 05/13/20 02:11 Pulse 88 05/13/20 02:11 Resp 15 05/13/20 02:11 BP 104/59 05/13/20 02:11 Pulse Ox 95 05/13/20 02:11 Intake & Output 05/12/20 05/13/20 05/13/20 18:59 06:59 18:59 Intake Total 900 Balance 900 Weight 55.338 kg Intake: Intake, IV Titration 900 Amount Sodium Chloride 0.9% 1, 900 000 ml @ 75 mls/hr IV . [id number] [facility] Rx#:[id number] Other: Voiding Method Toilet Toilet # Voids 1 - Labs CBC & Chem 7: 05/12/20 11:13 05/12/20 11:13 Labs: Abnormal Lab Results - Last 24 Hours (Table) 05/12/20 05/12/20 05/12/20 Range/Units 11:13 11:13 13:46 Glucose 138 H (74-99) mg/dL POC Glucose (mg/dL) (75-99) mg/dL Urine Ketones 1+ H (Negative) Urine Blood Trace H (Negative) Ur Leukocyte Esterase Large H (Negative) Urine Bacteria Rare H (None) /hpf Hyaline Casts 7 H (0-2) /lpf Urine Mucus Moderate H (None) /hpf Stool Lactoferrin (NEGATIVE) C. difficile (EIA) Intrp Positive A (Negative) 05/12/20 05/12/20 05/12/20 Range/Units 13:46 16:40 21:28 Glucose (74-99) mg/dL POC Glucose (mg/dL) 147 H 143 H (75-99) mg/dL Urine Ketones (Negative) Urine Blood (Negative) Ur Leukocyte Esterase (Negative) Urine Bacteria (None) /hpf Hyaline Casts (0-2) /lpf Urine Mucus (None) /hpf Stool Lactoferrin POSITIVE H (NEGATIVE) C. difficile (EIA) Intrp (Negative) 05/13/20 Range/Units 06:04 Glucose (74-99) mg/dL POC Glucose (mg/dL) 109 H (75-99) mg/dL Urine Ketones (Negative) Urine Blood (Negative) Ur Leukocyte Esterase (Negative) Urine Bacteria (None) /hpf Hyaline Casts (0-2) /lpf Urine Mucus (None) /hpf Stool Lactoferrin (NEGATIVE) C. difficile (EIA) Intrp (Negative) Microbiology - Last 24 Hours (Table) 05/12/20 13:46 Stool Culture - Preliminary Stool Assessment and Plan Assessment: c. diff colitis recent history of dental procedure of her right upper tooth recent history of left knee medial meniscal tear, status post partial medial meniscectomy left knee diabetes mellitus hyperlipidemia hypertension osteoarthritis Plan: this is a pleasant 79 yo F who presents with c diff colitis , continue with oral vancomycin, GI and Surgical consult, iv fluid . It questran Labs and medication were reviewed.. Continue same treatment. Continue with symptomatic treatment. Resume home medication. Monitor lytes and vitals. DVT and GI prophylaxis. Further recommendations depends on the clinical course of the patient DVT prophylaxis: Subcutaneous heparin GI Prophylaxis: Ppi patient will need more than 2 days of hospital stay
[2020-05-13] MEDS: HEPARIN SODIUM,PORCINE 5,000 UNIT/ML 1 ML VIAL SQ SCH ×2 (09:16→22:33)
[2020-05-13] MEDS: atenoloL 25 MG TAB PO SCH (09:16)
[2020-05-13] MEDS: CALCIUM CARB-VIT D 500MG-200UN 1 EACH TAB PO SCH (09:16)
[2020-05-13] MEDS: LORATADINE 10 MG TAB PO SCH (09:17)
[2020-05-13] MEDS: MULTIVITAMINS, THERA 1 EACH TAB PO SCH (09:17)
[2020-05-13] MEDS: CHOLESTYRAMINE (WITH SUGAR) 4 GM PACKET PO SCH ×2 (09:44→17:07)
[2020-05-13 09:46] LABS: ALT 10 U/L (4-34); AST 19 U/L (14-36); African American GFR (CKD) >90 (>60 ml/min/1.73 sqM); Albumin 3.1 g/dL (3.5-5.0); Alkaline Phosphatase 77 U/L (38-126); Anion Gap 6 mmol/L; Blood Urea Nitrogen 7 mg/dL (7-17); Carbon Dioxide 23 mmol/L (22-30); Chloride 110 mmol/L (98-107); Glucose 130 mg/dL (74-99); Magnesium 1.3 mg/dL (1.6-2.3); Non-African American GFR(CKD) 89 (>60 ml/min/1.73 sqM); Potassium 3.1 mmol/L (3.5-5.1); Sodium 139 mmol/L (137-145); Total Bilirubin 0.6 mg/dL (0.2-1.3); Total Protein 5.5 g/dL (6.3-8.2)
[2020-05-13 11:52] LABS: Glucose,Whole Blood 127 mg/dL (75-99)
[2020-05-13] MEDS ORDERED: Potassium Replacement Protocol 1 EACH MISC MISCELLANE PRN (12:24)
[2020-05-13] MEDS ORDERED: Magnesium Replacement Protocol 1 EACH MISC MISCELLANE PRN (12:24)
--- NOTE | 2020-05-13 13:01 | P.GSCN ---
History of Present Illness Consult date: 05/13/20 History of present illness: CHIEF COMPLAINT: Diarrhea HISTORY OF PRESENT ILLNESS: This is a 79-year-old female with a known history of diabetes, hyperlipidemia and hypertension. She also has been on antibiotics for the last 3 weeks After having some dental work and left knee meniscus surgery. Patient presents to the emergency room with 6 days of diarrhea. She reports abdominal cramping with the bowel movements. She denies any blood in her stools. She denies any nausea or vomiting. Denies any fever, chills or sweats. She had a computed tomography scan of the abdomen Which has shown evidence of colitis. Stool for C. diff was positive for colitis. She has been started on oral vancomycin and also Questran. PAST MEDICAL HISTORY: See list. PAST SURGICAL HISTORY: See list. MEDICATIONS: See list. ALLERGIES: See list. SOCIAL HISTORY: No illicit drug use. REVIEW OF SYSTEMS: CONSTITUTIONAL: Denies fever or chills. HEENT: Denies blurred vision, vision changes, or eye pain. Denies hemoptysis CARDIOVASCULAR: Denies chest pain or pressure. RESPIRATORY: No shortness of breath. GASTROINTESTINAL: See HPI for pertinent findings HEMATOLOGIC: Denies bleeding disorders. GENITOURINARY: Denies any blood in urine or increased urinary frequency. SKIN: Denies pruitis. Denies rash. PHYSICAL EXAM: VITAL SIGNS: Reviewed GENERAL: Well-developed in no acute distress. HEENT: No sclera icterus. Extraocular movements grossly intact. Moist buccal mucosa. Head is atraumatic, normocephalic. No nasal drainage. ABDOMEN: Soft. Nondistended. Mild lower abdominal tenderness NEUROLOGIC: Alert and oriented. Cranial nerves II through XII grossly intact. LABORATORY DATA: WBC 8.6 hemoglobin 14.4 sodium 139 potassium 3.1crit and 0.57 IMAGING: Computed tomography scan of the abdomen colonic wall thickening with inflammatory changes correlate for colitis. Splenic granuloma with a subcentimeter hypodensities too small to characterize could be followed with ultrasound. Hiatal hernia ASSESSMENT: 1. Diarrhea secondary to C. diff colitis with recent antibiotic use 2. Hypokalemia 3. Hypomagnesemia PLAN: -agree with oral vancomycin and Questran to help bulk stools -No surgical intervention needed at this time -Potassium and magnesium are being replaced Per protocol -Continue IV fluids thank you for this consultation Physician Digital Media Director note has been reviewed by physician. Signing provider agrees with the documented findings, assessment, and plan of care. Past Medical History Past Medical History: Diabetes Mellitus, Hyperlipidemia, Hypertension Additional Past Medical History / Comment(s): NIDDM type II, past irregular heart beat, occasional low back pain d/t pinched nerve, arthritis bilateral hands, osteopenia, bronchitis, sinus allergies, "pre cancer" breasts with bilateral mastectomies/reconstruction. History of Any Multi-Drug Resistant Organisms: None Reported Past Surgical History: Appendectomy Additional Past Surgical History / Comment(s): Bilateral Mastectomy 1995, L knee surgery, oral surgery Past Anesthesia/Blood Transfusion Reactions: No Reported Reaction Past Psychological History: No Psychological Hx Reported Smoking Status: Former smoker Past Alcohol Use History: None Reported Past Drug Use History: None Reported - Past Family History Mother Family Medical History: Cancer Additional Family Medical History / Comment(s): Mother had bilateral breast cancer at the age of 48yrs and from this at the age of 54yrs. Medications and Allergies Home Medications Medication Instructions Recorded Confirmed Type Calcium Carbonate/Vitamin D3 1 tab PO DAILY 06/18/17 05/12/20 History [Calcium 500-Vit D3 600 Tablet] Simvastatin [Zocor] 20 mg PO Q48H 06/18/17 05/12/20 History Zolpidem [Ambien] 10 mg PO HS 06/18/17 05/12/20 History atenoloL [Tenormin] 25 mg PO DAILY 06/18/17 05/12/20 History metFORMIN HCL [Glucophage] 750 mg PO BID 06/18/17 05/12/20 History Cetirizine HCl [Zyrtec] 10 mg PO DAILY 04/08/20 05/12/20 History Ibuprofen [Motrin Ib] 200 - 400 mg PO Q6H PRN 04/08/20 05/12/20 History Multivit-Min/Iron/Folic/Lutein 1 tab PO DAILY 04/08/20 05/12/20 History [Centrum Silver Women Tablet] Allergies Allergy/AdvReac Type Severity Reaction Status Date / Time codeine AdvReac Nausea & Verified 05/12/20 11:50 Vomiting Surgical - Exam Vital Signs Temp Pulse Resp BP Pulse Ox 98.4 F 91 18 135/72 97 05/12/20 10:38 05/12/20 10:38 05/12/20 10:38 05/12/20 10:38 05/12/20 10:38 Results - Labs 05/12/20 11:13 05/13/20 08:30 Abnormal Lab Results - Last 24 Hours (Table) 05/12/20 05/12/20 05/12/20 Range/Units 13:46 13:46 16:40 Potassium (3.5-5.1) mmol/L Chloride (98-107) mmol/L Glucose (74-99) mg/dL POC Glucose (mg/dL) 147 H (75-99) mg/dL Calcium (8.4-10.2) mg/dL Magnesium (1.6-2.3) mg/dL Total Protein (6.3-8.2) g/dL Albumin (3.5-5.0) g/dL Stool Lactoferrin POSITIVE H (NEGATIVE) C. difficile (EIA) Intrp Positive A (Negative) 05/12/20 05/13/20 05/13/20 Range/Units 21:28 06:04 08:30 Potassium 3.1 L (3.5-5.1) mmol/L Chloride 110 H (98-107) mmol/L Glucose 130 H (74-99) mg/dL POC Glucose (mg/dL) 143 H 109 H (75-99) mg/dL Calcium 8.0 L (8.4-10.2) mg/dL Magnesium 1.3 L (1.6-2.3) mg/dL Total Protein 5.5 L (6.3-8.2) g/dL Albumin 3.1 L (3.5-5.0) g/dL Stool Lactoferrin (NEGATIVE) C. difficile (EIA) Intrp (Negative) 05/13/20 Range/Units 11:50 Potassium (3.5-5.1) mmol/L Chloride (98-107) mmol/L Glucose (74-99) mg/dL POC Glucose (mg/dL) 127 H (75-99) mg/dL Calcium (8.4-10.2) mg/dL Magnesium (1.6-2.3) mg/dL Total Protein (6.3-8.2) g/dL Albumin (3.5-5.0) g/dL Stool Lactoferrin (NEGATIVE) C. difficile (EIA) Intrp (Negative) Microbiology - Last 24 Hours (Table) 05/12/20 13:46 Stool Culture - Preliminary Stool Diabetes panel 05/13/20 Range/Units 08:30 Sodium 139 (137-145) mmol/L Potassium 3.1 L (3.5-5.1) mmol/L Chloride 110 H (98-107) mmol/L Carbon Dioxide 23 (22-30) mmol/L BUN 7 (7-17) mg/dL Creatinine 0.57 (0.52-1.04) mg/dL Glucose 130 H (74-99) mg/dL Calcium 8.0 L (8.4-10.2) mg/dL AST 19 (14-36) U/L ALT 10 (4-34) U/L Alkaline Phosphatase 77 (38-126) U/L Total Protein 5.5 L (6.3-8.2) g/dL Albumin 3.1 L (3.5-5.0) g/dL Calcium panel 05/13/20 Range/Units 08:30 Calcium 8.0 L (8.4-10.2) mg/dL Albumin 3.1 L (3.5-5.0) g/dL Pituitary panel 05/13/20 Range/Units 08:30 Sodium 139 (137-145) mmol/L Potassium 3.1 L (3.5-5.1) mmol/L Chloride 110 H (98-107) mmol/L Carbon Dioxide 23 (22-30) mmol/L BUN 7 (7-17) mg/dL Creatinine 0.57 (0.52-1.04) mg/dL Glucose 130 H (74-99) mg/dL Calcium 8.0 L (8.4-10.2) mg/dL Adrenal panel 05/13/20 Range/Units 08:30 Sodium 139 (137-145) mmol/L Potassium 3.1 L (3.5-5.1) mmol/L Chloride 110 H (98-107) mmol/L Carbon Dioxide 23 (22-30) mmol/L BUN 7 (7-17) mg/dL Creatinine 0.57 (0.52-1.04) mg/dL Glucose 130 H (74-99) mg/dL Calcium 8.0 L (8.4-10.2) mg/dL Total Bilirubin 0.6 (0.2-1.3) mg/dL AST 19 (14-36) U/L ALT 10 (4-34) U/L Alkaline Phosphatase 77 (38-126) U/L Total Protein 5.5 L (6.3-8.2) g/dL Albumin 3.1 L (3.5-5.0) g/dL
[2020-05-13] MEDS: MAGNESIUM SULFATE-D5W PMX 1 GM in DEXTROSE/WATER 1 100ML.BAG IVPB SCH ×3 (13:30→15:55)
[2020-05-13] MEDS: POTASSIUM CHLORIDE ER 20 MEQ TAB.ER PO SCH ×2 (13:31→14:36)
[2020-05-13 15:30] VITALS: BMI 21.6
[2020-05-13 16:48] LABS: Glucose,Whole Blood 137 mg/dL (75-99)
[2020-05-13 19:00] LABS: Magnesium 2.5 mg/dL (1.6-2.3); Potassium 3.6 mmol/L (3.5-5.1)
[2020-05-13] MEDS ORDERED: POTASSIUM CHLORIDE ER 20 MEQ TAB.ER PO SCH (20:00)
[2020-05-13 21:07] LABS: Glucose,Whole Blood 131 mg/dL (75-99)
[2020-05-13] MEDS: ZOLPIDEM 5 MG TAB PO SCH (22:34)
--- NOTE | 2020-05-14 01:01 | CONS ---
CONSULTATION DATE OF DICTATION: 05/13/2020 REASON FOR CONSULTATION: Nausea, vomiting and diarrhea of 5 days duration. HISTORY OF PRESENT ILLNESS: The patient is a 79-year-old pleasant white female who was admitted to the hospital when she presented with abdominal pain associated with nausea, vomiting, diarrhea for the last 5 to 6 days duration. She was having about 5 to 6 loose watery bowel movements daily with no blood or mucus in the stool. She was having cramping lower abdominal discomfort. She recently finished a 10-day course of Augmentin following a tooth extraction about 3 weeks ago. She came to the emergency room and she had stool studies done. C difficile toxin was reported as positive. She was started on oral vancomycin early this morning and she is already feeling somewhat better. She had about 3 loose bowel movements today. No blood or mucus in the stool. Never had these symptoms in the past. She had low-grade fever when she came into the hospital. She denies any chills. PAST MEDICAL HISTORY: Significant for hypertension, diabetes mellitus, degenerative joint disease, hyperlipidemia. MEDICATIONS: Medications at home include Ambien, Zocor, Glucophage, Tenormin, Zyrtec, Motrin, Centrum Silver. ALLERGIES: CODEINE. PAST SURGICAL HISTORY: Recent tooth extraction, bilateral mastectomy, left knee surgery, appendectomy. SOCIAL HISTORY: No smoker. No alcohol use. FAMILY HISTORY: Unremarkable. REVIEW OF SYSTEMS: CARDIOPULMONARY: No chest pain. No shortness of breath. GENITOURINARY: No dysuria or hematuria. MUSCULOSKELETAL: Unremarkable. SKIN: Unremarkable. ENDOCRINE: Unremarkable. PSYCHIATRIC: Unremarkable. NEUROLOGY: Unremarkable. ENT/VISION: Unremarkable. CONSTITUTIONAL: Weight loss of 5 pounds. She had low-grade fever but no chills or night sweats. HEMATOLOGY: Unremarkable. PHYSICAL EXAMINATION: She appears comfortable. No apparent distress. Vital signs are stable. Temperature is 98, blood pressure 123/61, pulse is 73. HEENT EXAMINATION: Unremarkable. Conjunctivae pink. Sclerae anicteric. Oral cavity, no lesions. NECK: No JVD or lymph node enlargement. CHEST: Clear to auscultation. HEART: Regular rate and rhythm. ABDOMEN: Soft. Bowel sounds are positive. Very minimal tenderness in the suprapubic and left lower quadrant area. Rest of the abdomen was benign. EXTREMITIES: No pedal edema. SKIN: No rashes. NEUROLOGIC: Alert and oriented x3. No focal deficits. LABS: Labs done at the time of admission to the hospital, yesterday WBC 8.6, hemoglobin 14.4, platelets normal. Basic metabolic panel was completely within normal limits. BUN and creatinine of 13 and 0.5 respectively. Urinalysis 1+ ketones and trace blood. C difficile toxin positive. Stool lactoferrin positive. IMPRESSION: 1. This lady presents to the hospital with acute onset of nausea, vomiting with lower abdominal pain with cramping and diarrhea for the last 5 days duration. She finished a course of antibiotics following a tooth extraction for almost 10 days a couple of weeks ago. 2. Clostridium difficile was positive consistent with Clostridium difficile colitis. Patient started on oral vancomycin and is gradually improving. 3. Nausea and vomiting secondary to acute Clostridium difficile colitis, improving. 4. Recent tooth extraction for which she was Augmentin for 10 days. 5. History of hypertension, diabetes mellitus, and hyperlipidemia. RECOMMENDATIONS: 1. Continue with oral vancomycin 250 mg q.6 hours. 2. Continue with Questran 4 grams twice daily. 3. Advance diet as tolerated. 4. Repeat labs in the morning. 5. If she is still improving, she can be discharged home in the next 24 to 48 hours with an outpatient followup in 3 to 4 weeks. We will follow with you closely. Thank you for this consultation. VALENTINA / CHUCK: [phone] /
[2020-05-14] MEDS: SODIUM CHLORIDE 0.9% 1,000 ML IV SCH (05:20)
[2020-05-14 06:23] LABS: Glucose,Whole Blood 126 mg/dL (75-99)
[2020-05-14 08:21] LABS: African American GFR (CKD) >90 (>60 ml/min/1.73 sqM); Anion Gap 6 mmol/L; Blood Urea Nitrogen 3 mg/dL (7-17); Calcium 8.1 mg/dL (8.4-10.2); Carbon Dioxide 25 mmol/L (22-30); Chloride 110 mmol/L (98-107); Glucose 123 mg/dL (74-99); Magnesium 1.7 mg/dL (1.6-2.3); Non-African American GFR(CKD) 88 (>60 ml/min/1.73 sqM); Potassium 3.6 mmol/L (3.5-5.1); Sodium 141 mmol/L (137-145)
[2020-05-14 08:44] VITALS: BP 128/58; PULSE 83; RESP 16; TEMP 98.2
[2020-05-14] MEDS: VANCOMYCIN 125 MG CAPSULE PO SCH (08:45)
[2020-05-14] MEDS: CHOLESTYRAMINE (WITH SUGAR) 4 GM PACKET PO SCH (08:45)
[2020-05-14] MEDS: HEPARIN SODIUM,PORCINE 5,000 UNIT/ML 1 ML VIAL SQ SCH (08:45)
[2020-05-14] MEDS: LORATADINE 10 MG TAB PO SCH (08:46)
[2020-05-14] MEDS: CALCIUM CARB-VIT D 500MG-200UN 1 EACH TAB PO SCH (08:46)
[2020-05-14] MEDS: atenoloL 25 MG TAB PO SCH (08:46)
[2020-05-14] MEDS: MULTIVITAMINS, THERA 1 EACH TAB PO SCH (08:46)
[2020-05-14] MEDS ORDERED: PANTOPRAZOLE 40 MG TABLET PO SCH (09:00)
[2020-05-14] MEDS ORDERED: POTASSIUM CHLORIDE ER 20 MEQ TAB.ER PO STA (09:53)
[2020-05-14] MEDS ORDERED: MAGNESIUM OXIDE 400 MG TAB PO SCH (10:00)
--- NOTE | 2020-05-14 11:50 | P.PN ---
Subjective Progress Note Date: 05/14/20 Principal diagnosis: Nausea, vomiting, and diarrhea Is is a 79-year-old pleasant white female who was admitted to the hospital with abdominal pain associated with nausea, vomiting, and diarrhea for last 5-6 days duration. She had undergone 2 previous rounds of antibiotics within the last couple months. Stool studies were completed her C. difficile toxin was reported as positive. She has been started on oral vancomycin and is feeling better. He was started on Questran twice a day as needed. States her stools are more formed, and only had 3 bowel movements yesterday. She denies any abdominal pain or cramping. She said no nausea or vomiting through the night or this morning, she has been afebrile with no acute changes through the night. Objective - Vital Signs Vital signs: Vital Signs Temp 98.2 F 05/14/20 08:44 Pulse 83 05/14/20 08:44 Resp 16 05/14/20 08:44 BP 128/58 05/14/20 08:44 Pulse Ox 95 05/14/20 08:44 Intake & Output 05/13/20 05/14/20 05/14/20 18:59 06:59 18:59 Intake Total 900 Balance 900 Weight 55.338 kg Intake: Intake, IV Titration 900 Amount Sodium Chloride 0.9% 1, 900 000 ml @ 75 mls/hr IV . [id number] [facility] Rx#:[id number] Other: Voiding Method Toilet Toilet Toilet # Voids 1 2 # Bowel Movements 1 1 - Exam General appearance: The patient is alert, oriented, in no acute distress. HET: Head is normocephalic and atraumatic. Conjunctiva pink. Sclera anicteric. Neck: Supple without lymphadenopathy. Abdomen: Soft, nontender, nondistended with bowel sounds. No guarding or rigidity. Extremities: Normal skin color and turgor. No pedal edema Neurological: No focal deficits. Alert and oriented 3. - Labs CBC & Chem 7: 05/12/20 11:13 05/14/20 07:22 Labs: Abnormal Lab Results - Last 24 Hours (Table) 05/13/20 05/13/20 05/13/20 Range/Units 11:50 16:45 18:33 Chloride (98-107) mmol/L BUN (7-17) mg/dL Glucose (74-99) mg/dL POC Glucose (mg/dL) 127 H 137 H (75-99) mg/dL Calcium (8.4-10.2) mg/dL Magnesium 2.5 H (1.6-2.3) mg/dL 05/13/20 05/14/20 05/14/20 Range/Units 21:05 06:22 07:22 Chloride 110 H (98-107) mmol/L BUN 3 L (7-17) mg/dL Glucose 123 H (74-99) mg/dL POC Glucose (mg/dL) 131 H 126 H (75-99) mg/dL Calcium 8.1 L (8.4-10.2) mg/dL Magnesium (1.6-2.3) mg/dL Assessment and Plan (1) Colitis Narrative/Plan: Saline who presents to the hospital with acute onset of nausea, vomiting, and lower abdominal cramping with diarrhea for the past 5 days duration. She finished her course of antibiotics following a tooth extraction for almost 10 days and prior antibiotics for a knee replacement as well. Clostridium difficile was positive consistent with Clostridium difficile colitis. Patient started on oral vancomycin is gradually improving. Current Visit: Yes Status: Acute Code(s): K52.9 - NONINFECTIVE GASTROENTERITIS AND COLITIS, UNSPECIFIED SNOMED Code(s): 97725973 (2) Abdominal pain Current Visit: Yes Status: Acute Code(s): R10.9 - UNSPECIFIED ABDOMINAL PAIN SNOMED Code(s): 27642328 (3) Diarrhea Current Visit: Yes Status: Acute Code(s): R19.7 - DIARRHEA, UNSPECIFIED SNOMED Code(s): 64625658 (4) Nausea & vomiting Narrative/Plan: Nausea and vomiting secondary to acute Clostridium difficile colitis, improved. Current Visit: Yes Status: Acute Code(s): R11.2 - NAUSEA WITH VOMITING, UNSPECIFIED SNOMED Code(s): 31809720 Plan: 1. Continue with oral vancomycin 250 mg every 6 hours 2. Continue with Questran 4 g twice daily as needed 3. Advance diet as tolerated 4. Agree with replacement of potassium and magnesium. 5. Gastroenterology services are okay with discharge home with follow-up in 3-4 weeks The impression and plan of care has been dictated as directed. Dr. Tre Crawley I performed a history and examination of this patient, discussed the same with the dictator. I agree with the dictator's note ,documented as a scribe. Any additional findings or plans will be noted.
--- NOTE | 2020-05-15 23:28 | P.DS ---
Providers Date of admission: 05/12/20 13:38 Attending physician: Enmanuel Farah MD Consults: 05/12/20 13:25 Consult Physician Stat Consulting Provider: Marie Crawley Consult Reason/Comments: Colitis, suspected C. diff, diarrhea Do you want consulting provider notified?: Yes 05/12/20 13:28 Consult Physician Urgent Consulting Provider: Brian Hardin Consult Reason/Comments: colitis Do you want consulting provider notified?: Yes Primary care physician: Magen Patterson Hospital Course: Diagnoses: c. diff colitis , improved recent history of dental procedure of her right upper tooth recent history of left knee medial meniscal tear, status post partial medial meniscectomy left knee diabetes mellitus hyperlipidemia hypertension osteoarthritis Hospital course: this is a pleasant 79 years old Females with multiple medical problems as below presents with five days of abdominal pain . her pain mainly willy-umbilical , associated with 3-4 loose bowel movements per day. Patient C. diff test came back positive. Infectious disease consult was obtained. GI team also evaluated the patient. She was treated with oral vancomycin. She showed interval improvement and on the day of discharge she has no abdominal pain, diarrhea resolved and she is formed stool with no nausea vomiting and tolerating diet. Patient feels she can go home today. Patient was cleared for discharge by both GI and infectious disease team She was discharge on oral vancomycin Problems and management plan were discussed with the patient and he verbalized understanding and acceptance Patient was found stable and can be discharged home however he needs follow-up as an outpatient. Patient was instructed to follow up with PCP Dr. Patterson within one week and patient agrees with the appointments made for her. Also she agrees with appointment. With GI team Gen: patient is a AAOx3, no distress CVS: S1-S2, RRR, no murmur Lungs: B/L CTA, no wheezing Abdomen: soft, no distention, no tenderness, positive bowel sounds Extremity: no leg edema or induration Time spent more than 35 minutes Patient Condition at Discharge: Good Plan - Discharge Summary Discharge Rx Participant: No New Discharge Prescriptions: New Pantoprazole [Protonix] 40 mg PO DAILY 10 Days #10 tablet. Cholestyramine (with Sugar) [Questran Packet] 4 gm PO BID@1000,1800 PRN #6 packet PRN Reason: Diarrhea Vancomycin 250 mg PO QID 10 Days #40 capsule Continue metFORMIN HCL [Glucophage] 750 mg PO BID Simvastatin [Zocor] 20 mg PO Q48H Calcium Carbonate/Vitamin D3 [Calcium 500-Vit D3 600 Tablet] 1 tab PO DAILY atenoloL [Tenormin] 25 mg PO DAILY Zolpidem [Ambien] 10 mg PO HS Cetirizine HCl [Zyrtec] 10 mg PO DAILY Multivit-Min/Iron/Folic/Lutein [Centrum Silver Women Tablet] 1 tab PO DAILY Discontinued Ibuprofen [Motrin Ib] 200 - 400 mg PO Q6H PRN PRN Reason: Pain Discharge Medication List Calcium Carbonate/Vitamin D3 [Calcium 500-Vit D3 600 Tablet] 1 tab PO DAILY 06/18/17 [History] Simvastatin [Zocor] 20 mg PO Q48H 06/18/17 [History] Zolpidem [Ambien] 10 mg PO HS 06/18/17 [History] atenoloL [Tenormin] 25 mg PO DAILY 06/18/17 [History] metFORMIN HCL [Glucophage] 750 mg PO BID 06/18/17 [History] Cetirizine HCl [Zyrtec] 10 mg PO DAILY 04/08/20 [History] Multivit-Min/Iron/Folic/Lutein [Centrum Silver Women Tablet] 1 tab PO DAILY 04/08/20 [History] Cholestyramine (with Sugar) [Questran Packet] 4 gm PO BID@1000,1800 PRN #6 p acket 05/14/20 [Rx] Pantoprazole [Protonix] 40 mg PO DAILY 10 Days #10 tablet.dr 05/14/20 [Rx] Vancomycin 250 mg PO QID 10 Days #40 capsule 05/14/20 [Rx] Follow up Appointment(s)/Referral(s): Marie Crawley MD [STAFF PHYSICIAN] - 05/31/20 2:30 pm (3-4 weeks but in one week if you are going to [place] ) Magen Patterson DO [Primary Care Provider] - 05/25/20 9:15 am Patient Instructions/Handouts: C Diff (Clostridium Difficile) Infection (DC), C Diff (Clostridium Difficile) Infection (GEN), Abdominal Pain (ED) Activity/Diet/Wound Care/Special Instructions: heart healthy diet activity is limited till you see your doctor Discharge Disposition: HOME SELF-CARE
== END 2020-05-14 11:30 | disposition home or self-care (01) ==
LOC: EC 10:36 → 1SOBS 13:38
PROVIDERS: ADMIT Internal Medicine; ATTEND Internal Medicine
DX: A04.72 Enterocolitis due to Clostridium difficile, not specified as recurrent (principal); A41.9 Sepsis, unspecified organism; E11.9 Type 2 diabetes mellitus without complications; E78.5 Hyperlipidemia, unspecified; I10 Essential (primary) hypertension; M19.90 Unspecified osteoarthritis, unspecified site; Z90.13 Acquired absence of bilateral breasts and nipples; Z87.891 Personal history of nicotine dependence; K44.9 Diaphragmatic hernia without obstruction or gangrene; E87.6 Hypokalemia; E83.42 Hypomagnesemia; M54.5 Low back pain; G58.8 Other specified mononeuropathies; M19.042 Primary osteoarthritis, left hand; M19.041 Primary osteoarthritis, right hand; M85.80 Other specified disorders of bone density and structure, unspecified site; Z96.659 Presence of unspecified artificial knee joint; Z80.3 Family history of malignant neoplasm of breast; Z98.890 Other specified postprocedural states; Z79.84 Long term (current) use of oral hypoglycemic drugs; Z79.1 Long term (current) use of non-steroidal anti-inflammatories (NSAID); Z79.899 Other long term (current) drug therapy; Z88.5 Allergy status to narcotic agent
CPT/HCPCS: 96361 ×2; 96365; 96366; 96372 ×3; 96375 ×2; 99285; 36415; 93005; 80053 ×2; 80048; 83605; 83690; 83735 ×2; 84132; 84484; 85025; 81001; 87324; 87045; 83630; 87046; 74177; G0378 ×3; J1644 ×3; J3475; C9113; Q9967

== ENCOUNTER → 2020-07-05 | Outpatient (CLI) | payer MEDICARE ==
[2020-07-05 11:26] LABS: Basophils # (A) 0.1 k/uL (0-0.2); Basophils % (A) 1 %; Eosinophils # (A) 0.2 k/uL (0-0.7); Eosinophils % (A) 4 %; HCT 44.9 % (34.0-46.0); HGB 14.8 gm/dL (11.4-16.0); Lymphocytes # (A) 1.5 k/uL (1.0-4.8); Lymphocytes % (A) 27 %; MCH 29.6 pg (25.0-35.0); MCHC 32.9 g/dL (31.0-37.0); MCV 89.9 fL (80.0-100.0); Mean Platelet Volume 7.2; Monocytes # (A) 0.4 k/uL (0-1.0); Monocytes % (A) 6 %; Neutrophils # (A) 3.5 k/uL (1.3-7.7); Neutrophils % (A) 61 %; Platelet Count 197 k/uL (150-450); RDW 12.9 % (11.5-15.5); WBC 5.8 k/uL (3.8-10.6)
[2020-07-05 19:12] LABS: African American GFR (CKD) 81.3 (60.0-200.0); Albumin 4.6 g/dL (3.80-4.90); Albumin/Globulin Ratio 2.09 (1.60-3.17); Anion Gap 11.3 mmol/L (4.00-12.00); BUN/Creat Ratio 21.25 Ratio (12.00-20.00); Bilirubin, Conjugated 0.2 mg/dL (0.20-0.40); Bilirubin,Unconjugated 0.3 mg/dL; Calcium 9.6 mg/dL (8.7-10.3); Carbon Dioxide 27.7 mmol/L (21.6-31.8); Chol/HDL Ratio 3.21; Globulin 2.2 g/dL (1.6-3.3); LDL Cholesterol,Calculated 100.4 mg/dL (0.0-131.0); Non-African American GFR(CKD) 70.1 (60.0-200.0); Potassium 3.9 mmol/L (3.5-5.5); Total Bilirubin 0.5 mg/dL (0.2-1.2); Total Protein 6.8 g/dL (6.2-8.2); VLDL Calculation 25.6 mg/dL (5.00-40.00)
== END | disposition home or self-care (01) ==
LOC: LABWHC1 09:53
PROVIDERS: ATTEND Internal Medicine Critical Care Medicine
DX: Z00.00 Encounter for general adult medical examination without abnormal findings (principal); E11.9 Type 2 diabetes mellitus without complications; E55.9 Vitamin D deficiency, unspecified; E78.5 Hyperlipidemia, unspecified; R05 Cough; R53.83 Other fatigue; Z79.899 Other long term (current) drug therapy
CPT/HCPCS: 36415; 80053; 80061; 82248; 82306; 83036; 84439; 84443; 85025

== ENCOUNTER → 2020-07-06 | Outpatient (CLI) | payer MEDICARE ==
--- NOTE | 2020-07-06 13:06 | XR ---
EXAMINATION TYPE: XR ankle complete LT, XR foot complete LT DATE OF EXAM: 07/06/2020 CLINICAL HISTORY: Lateral pain since stinging injury. TECHNIQUE: Frontal, lateral and oblique images of the left ankle and foot are obtained. COMPARISON: None. FINDINGS: There is no acute fracture/dislocation evident in the left ankle. The ankle mortise appea rs within normal limits. Mild to moderate soft tissue swelling over the lateral malleolus without lila picious radiodense foreign body. There is no acute fracture or dislocation evident in the left foot. Severe narrowing with moderate pe ripheral spurring of first metatarsal-phalangeal joint. Flexion and the fourth and fifth toes. Modera te size inferior calcaneal spur. Proximal plantar fascia calcifications. IMPRESSION: As above.
--- NOTE | 2020-07-06 16:13 | US ---
EXAMINATION TYPE: US venous doppler duplex LE LT DATE OF EXAM: 07/06/2020 12:16 PM COMPARISON: NONE CLINICAL HISTORY: M79.662 pain in left lower limb. stung by string ray 3 weeks ago, pain and swelling in foot, no h/o dvt SIDE PERFORMED: Left TECHNIQUE: The lower extremity deep venous system is examined utilizing real time linear array sonog trena with graded compression, doppler sonography and color-flow sonography. VESSELS IMAGED: Common Femoral Vein Deep Femoral Vein Greater Saphenous Vein * Femoral Vein Popliteal Vein Small Saphenous Vein * Proximal Calf Veins (* superficial vessels) Left Leg: Negative for DVT, 6.0cm Yanez cyst seen IMPRESSION: 1. Left lower extremity ultrasound negative for deep venous thrombosis. 2. Popliteal cyst
== END | disposition home or self-care (01) ==
LOC: RADUSWWP 11:27
PROVIDERS: ATTEND Internal Medicine Critical Care Medicine
DX: M71.22 Synovial cyst of popliteal space [Baker], left knee (principal); M79.89 Other specified soft tissue disorders; M21.272 Flexion deformity, left ankle and toes; M25.872 Other specified joint disorders, left ankle and foot

== ENCOUNTER 2021-02-16 10:53 | Emergency (ER) | payer MEDICARE ==
[2021-02-16 10:56] VITALS: RESP 18; TEMP 98.3
[2021-02-16] MEDS ORDERED: SODIUM CHLORIDE 0.9% 1,000 ML IV STA (11:05)
[2021-02-16] MEDS ORDERED: ONDANSETRON 4 MG/2 ML VIAL IVP STA (11:05)
[2021-02-16 11:31] LABS: Basophils % (A) 0 %; Eosinophils # (A) 0.1 k/uL (0-0.7); Eosinophils % (A) 2 %; HCT 46.8 % (34.0-46.0); HGB 15.4 gm/dL (11.4-16.0); Lymphocytes # (A) 1.3 k/uL (1.0-4.8); Lymphocytes % (A) 19 %; MCHC 32.8 g/dL (31.0-37.0); MCV 88.6 fL (80.0-100.0); Mean Platelet Volume 7.7; Monocytes # (A) 0.4 k/uL (0-1.0); Monocytes % (A) 6 %; Neutrophils % (A) 71 %; Platelet Count 196 k/uL (150-450); RBC 5.29 m/uL (3.80-5.40); RDW 12.8 % (11.5-15.5)
[2021-02-16 11:47] LABS: ALT 18 U/L (4-34); African American GFR (CKD) >90 (>60 ml/min/1.73 sqM); Amylase 61 U/L (30-110); Anion Gap 9 mmol/L; Appearance,Urine Cloudy (Clear); Bacteria,Urine Rare /hpf; Bilirubin,Urine Negative (Negative); Blood Urea Nitrogen 19 mg/dL (7-17); Blood,Urine Trace (Negative); Carbon Dioxide 22 mmol/L (22-30); Chloride 107 mmol/L (98-107); Color,Urine Yellow; Glucose 144 mg/dL (74-99); Glucose,Urine (UA) Negative (Negative); Ketones,Urine Negative (Negative); Leukocyte Esterase,Urine Large (Negative); Lipase 111 U/L (23-300); Mucus,Urine Rare /hpf; Nitrite,Urine Negative (Negative); Non-African American GFR(CKD) 86 (>60 ml/min/1.73 sqM); Protein,Urine Trace (Negative); RBC,Urine 7 /hpf (0-5); Sodium 138 mmol/L (137-145); Specific Gravity,Urine 1.013 (1.001-1.035); Squamous Epithelial Cell,Urine 1 /hpf (0-4); Urobilinogen,Urine <2.0 mg/dL (<2.0); WBC,Urine 142 /hpf (0-5)
[2021-02-16 11:54] LABS: Albumin 4.9 g/dL (3.5-5.0); Total Protein 7.9 g/dL (6.3-8.2)
[2021-02-16 11:55] LABS: AST 46 U/L (14-36); Alkaline Phosphatase 94 U/L (38-126); Total Bilirubin 1.2 mg/dL (0.2-1.3)
--- NOTE | 2021-02-16 12:44 | CT ---
EXAMINATION TYPE: CT abdomen pelvis w con DATE OF EXAM: 02/16/2021 COMPARISON: 05/12/2020 HISTORY: Diarrhea, history of Colitis CT DLP: 761 mGycm CONTRAST: CT scan of the abdomen and pelvis is performed without Oral Contrast and with IV Contrast, patient in jected with 100 mL of Isovue 300. FINDINGS: LUNG BASES-: No visible nodule. No infiltrate. Moderate fixed hiatal hernia. LIVER/GB: No calcified gallstones. No space occupying hepatic lesion. Biliary tree is of normal ca liber. PANCREAS: No inflammation. No distinct mass. SPLEEN: No splenic enlargement. No lesion seen. Splenic granulomas identified. ADRENALS: No nodule. No thickening. KIDNEYS/BLADDER: No hydronephrosis. No nephrolithiasis. No distinct renal mass. Urinary bladder g rossly unremarkable. BOWEL: Normal appendix. Normal bowel caliber. No inflammation. GENITAL ORGANS: No gross abnormality. LYMPH NODES: No greater than 1cm abdominal or pelvic lymph nodes are appreciated. AORTA: No significant abnormality. OSSEOUS STRUCTURES: No significant abnormality is seen. OTHER: No significant additional abnormality is seen. IMPRESSION: 1. Moderate fixed hiatal hernia. 2. No evidence for inflammatory process or obstruction. No free air or abscess.
[2021-02-16] MEDS ORDERED: cefTRIAXone IN SWFI 1,000 MG/10 ML SYRINGE IVP STA (13:15)
--- NOTE | 2021-02-16 13:17 | ED ---
Nausea/Vomiting/Diarrhea HPI - General Chief complaint: Nausea/Vomiting/Diarrhea Stated complaint: Diarrhea Time Seen by Provider: 02/16/21 10:59 Source: patient, RN notes reviewed Mode of arrival: ambulatory Limitations: no limitations - History of Present Illness Initial comments: Patient is a 80-year-old female that presents to emergency department planning of nausea and diarrhea the last 2-3 days. She notes that her bowel movements have become looser black and stringy. She notes that she does have a history of colitis approximately 10 months ago. She noted that she did have some mild abdominal discomfort with no point tenderness or pain. She was a well-appearing well-hydrated 80-year-old female in no apparent distress. She denied any chest pain shortness of breath headache vomiting constipation fever fatigue chills. - Related Data Home Medications Medication Instructions Recorded Confirmed Calcium Carbonate/Vitamin D3 1 tab PO DAILY 06/18/17 05/12/20 [Calcium 500-Vit D3 15 Mcg (600 Iu)] Simvastatin [Zocor] 20 mg PO Q48H 06/18/17 05/12/20 Zolpidem [Ambien] 10 mg PO HS 06/18/17 05/12/20 atenoloL [Tenormin] 25 mg PO DAILY 06/18/17 05/12/20 metFORMIN HCL [Glucophage] 750 mg PO BID 06/18/17 05/12/20 Cetirizine HCl [Zyrtec] 10 mg PO DAILY 04/08/20 05/12/20 Multivit-Min/Iron/Folic/Lutein 1 tab PO DAILY 04/08/20 05/12/20 [Centrum Silver Women Tablet] Previous Rx's Medication Instructions Recorded Cholestyramine (with Sugar) 4 gm PO BID@1000,1800 PRN #6 packet 05/14/20 [Questran Packet] Pantoprazole [Protonix] 40 mg PO DAILY 10 Days #10 05/14/20 tablet. Vancomycin 250 mg PO QID 10 Days #40 capsule 05/14/20 Nitrofurantoin Monohyd/M-Cryst 100 mg PO Q12HR #14 cap 02/16/21 [Macrobid] Allergies Allergy/AdvReac Type Severity Reaction Status Date / Time codeine AdvReac Nausea & Verified 02/16/21 10:54 Vomiting Review of Systems ROS Statement: Those systems with pertinent positive or pertinent negative responses have been documented in the HPI. ROS Other: All systems not noted in ROS Statement are negative. Past Medical History Past Medical History: Diabetes Mellitus, Hyperlipidemia, Hypertension Additional Past Medical History / Comment(s): NIDDM type II, past irregular heart beat, occasional low back pain d/t pinched nerve, arthritis bilateral hands, osteopenia, bronchitis, sinus allergies, "pre cancer" breasts with bilateral mastectomies/reconstruction. History of Any Multi-Drug Resistant Organisms: None Reported Past Surgical History: Appendectomy Additional Past Surgical History / Comment(s): Bilateral Mastectomy 1995, L knee surgery, oral surgery Past Anesthesia/Blood Transfusion Reactions: No Reported Reaction Past Psychological History: No Psychological Hx Reported Smoking Status: Former smoker Past Alcohol Use History: None Reported Past Drug Use History: None Reported - Past Family History Mother Family Medical History: Cancer Additional Family Medical History / Comment(s): Mother had bilateral breast cancer at the age of 48yrs and from this at the age of 54yrs. General Exam Limitations: no limitations General appearance: alert, in no apparent distress Head exam: Present: atraumatic, normocephalic, normal inspection Eye exam: Present: normal appearance, PERRL, EOMI. Absent: scleral icterus, conjunctival injection, periorbital swelling Neck exam: Present: normal inspection Respiratory exam: Present: normal lung sounds bilaterally. Absent: respiratory distress, wheezes, rales, rhonchi, stridor Cardiovascular Exam: Present: regular rate, normal rhythm, normal heart sounds. Absent: systolic murmur, diastolic murmur, rubs, gallop, clicks GI/Abdominal exam: Present: soft, normal bowel sounds, other (Generalized discomfort). Absent: distended, tenderness, guarding, rebound, rigid Extremities exam: Present: normal inspection, full ROM, normal capillary refill. Absent: tenderness, pedal edema, joint swelling, calf tenderness Neurological exam: Present: alert, oriented X3 Psychiatric exam: Present: normal affect, normal mood Skin exam: Present: warm, dry, intact, normal color. Absent: rash Course Vital Signs 02/16/21 02/16/21 10:54 12:24 Temperature 98.3 F Pulse Rate 89 81 Respiratory 18 18 Rate Blood Pressure 184/77 135/63 O2 Sat by Pulse 95 95 Oximetry Medical Decision Making - Medical Decision Making 80-year-old female complaining of diarrhea and some nausea for the last 2-3 days. Labs, 1 L normal saline, 4 mg Zofran, CT of the abdomen and pelvis ordered. Labs unremarkable. Computed tomography scan shows moderate fixed hiatal hernia but no other acute findings. Urinalysis shows urinary tract infection patient will be given 1 g Rocephin in the emergency Department and sent home on antibiotics. Case discussed with Dr. Flor, patient can discharge home. - Lab Data Result diagrams: 02/16/21 11:08 02/16/21 11:08 Lab Results 02/16/21 02/16/21 02/16/21 Range/Units 11:08 11:08 11:08 WBC 7.0 (3.8-10.6) k/uL RBC 5.29 (3.80-5.40) m/uL Hgb 15.4 (11.4-16.0) gm/dL Hct 46.8 H (34.0-46.0) % MCV 88.6 (80.0-100.0) fL MCH 29.0 (25.0-35.0) pg MCHC 32.8 (31.0-37.0) g/dL RDW 12.8 (11.5-15.5) % Plt Count 196 (150-450) k/uL MPV 7.7 Neutrophils % 71 % Lymphocytes % 19 % Monocytes % 6 % Eosinophils % 2 % Basophils % 0 % Neutrophils # 5.0 (1.3-7.7) k/uL Lymphocytes # 1.3 (1.0-4.8) k/uL Monocytes # 0.4 (0-1.0) k/uL Eosinophils # 0.1 (0-0.7) k/uL Basophils # 0.0 (0-0.2) k/uL Sodium 138 (137-145) mmol/L Potassium 6.0 H (3.5-5.1) mmol/L Chloride 107 (98-107) mmol/L Carbon Dioxide 22 (22-30) mmol/L Anion Gap 9 mmol/L BUN 19 H (7-17) mg/dL Creatinine 0.62 (0.52-1.04) mg/dL Est GFR (CKD-EPI)AfAm >90 (>60 ml/min/1.73 sqM) Est GFR (CKD-EPI)NonAf 86 (>60 ml/min/1.73 sqM) Glucose 144 H (74-99) mg/dL Calcium 10.0 (8.4-10.2) mg/dL Total Bilirubin 1.2 (0.2-1.3) mg/dL AST 46 H (14-36) U/L ALT 18 (4-34) U/L Alkaline Phosphatase 94 (38-126) U/L Total Protein 7.9 (6.3-8.2) g/dL Albumin 4.9 (3.5-5.0) g/dL Amylase 61 (30-110) U/L Lipase 111 (23-300) U/L Urine Color Yellow Urine Appearance Cloudy H (Clear) Urine pH 5.0 (5.0-8.0) Ur Specific Gardner 1.013 (1.001-1.035) Urine Protein Trace H (Negative) Urine Glucose (UA) Negative (Negative) Urine Ketones Negative (Negative) Urine Blood Trace H (Negative) Urine Nitrite Negative (Negative) Urine Bilirubin Negative (Negative) Urine Urobilinogen <2.0 (<2.0) mg/dL Ur Leukocyte Esterase Large H (Negative) Urine RBC 7 H (0-5) /hpf Urine WBC 142 H (0-5) /hpf Ur Squamous Epith Cells 1 (0-4) /hpf Urine Bacteria Rare H (None) /hpf Urine Mucus Rare H (None) /hpf Stool Occult Blood (Negative) 02/16/21 Range/Units 11:08 WBC (3.8-10.6) k/uL RBC (3.80-5.40) m/uL Hgb (11.4-16.0) gm/dL Hct (34.0-46.0) % MCV (80.0-100.0) fL MCH (25.0-35.0) pg MCHC (31.0-37.0) g/dL RDW (11.5-15.5) % Plt Count (150-450) k/uL MPV Neutrophils % % Lymphocytes % % Monocytes % % Eosinophils % % Basophils % % Neutrophils # (1.3-7.7) k/uL Lymphocytes # (1.0-4.8) k/uL Monocytes # (0-1.0) k/uL Eosinophils # (0-0.7) k/uL Basophils # (0-0.2) k/uL Sodium (137-145) mmol/L Potassium (3.5-5.1) mmol/L Chloride (98-107) mmol/L Carbon Dioxide (22-30) mmol/L Anion Gap mmol/L BUN (7-17) mg/dL Creatinine (0.52-1.04) mg/dL Est GFR (CKD-EPI)AfAm (>60 ml/min/1.73 sqM) Est GFR (CKD-EPI)NonAf (>60 ml/min/1.73 sqM) Glucose (74-99) mg/dL Calcium (8.4-10.2) mg/dL Total Bilirubin (0.2-1.3) mg/dL AST (14-36) U/L ALT (4-34) U/L Alkaline Phosphatase (38-126) U/L Total Protein (6.3-8.2) g/dL Albumin (3.5-5.0) g/dL Amylase (30-110) U/L Lipase (23-300) U/L Urine Color Urine Appearance (Clear) Urine pH (5.0-8.0) Ur Specific Gardner (1.001-1.035) Urine Protein (Negative) Urine Glucose (UA) (Negative) Urine Ketones (Negative) Urine Blood (Negative) Urine Nitrite (Negative) Urine Bilirubin (Negative) Urine Urobilinogen (<2.0) mg/dL Ur Leukocyte Esterase (Negative) Urine RBC (0-5) /hpf Urine WBC (0-5) /hpf Ur Squamous Epith Cells (0-4) /hpf Urine Bacteria (None) /hpf Urine Mucus (None) /hpf Stool Occult Blood Negative (Negative) - Radiology Data Radiology results: report reviewed, image reviewed Computed tomography scan of the abdomen and pelvis: Moderate fixed hiatal hernia. No evidence for inflammatory process or obstruction. No free air or abscess. Disposition Clinical Impression: Nausea & vomiting, Abdominal pain, Urinary tract infection Disposition: HOME SELF-CARE Condition: Stable Instructions (If sedation given, give patient instructions): Abdominal Pain (ED) Additional Instructions: Please return to the Emergency Department if symptoms worsen or any other concerns. Follow-up with primary care in the next several days. Take antibiotics as prescribed. Increase oral fluids. Is patient prescribed a controlled substance at d/c from ED?: No Referrals: Magen Patterson DO [Primary Care Provider] - 1-2 days Time of Disposition: 13:17
[2021-02-16 13:42] VITALS: BP 119/66; PULSE 77
== END 2021-02-16 13:42 | disposition home or self-care (01) ==
LOC: EC 10:53
DX: N39.0 Urinary tract infection, site not specified (principal); R19.7 Diarrhea, unspecified; E11.9 Type 2 diabetes mellitus without complications; I10 Essential (primary) hypertension; E78.5 Hyperlipidemia, unspecified; M19.041 Primary osteoarthritis, right hand; M19.042 Primary osteoarthritis, left hand; M85.80 Other specified disorders of bone density and structure, unspecified site; Z79.84 Long term (current) use of oral hypoglycemic drugs; Z87.891 Personal history of nicotine dependence; Z88.5 Allergy status to narcotic agent; Z90.13 Acquired absence of bilateral breasts and nipples
CPT/HCPCS: 36415; 80053; 82150; 83690; 85025; 82272; 81001; 87086; 74177; 99284; 96374; 96375; 96361; J2405; J0696; Q9967

== ENCOUNTER → 2021-06-20 | Outpatient (CLI) | payer MEDICARE ==
--- NOTE | 2021-06-21 14:12 | MM ---
Reason for exam: screening (asymptomatic). Last mammogram was performed 2 years and 11 months ago. History: Patient is postmenopausal, history of high-risk lesion on a previous biopsy, and had first child at age 37. Family history of breast cancer in mother at age 45 and breast cancer in maternal aunt at age 60. Retro-pectoral silicone gel implants in both breasts, 2012. Mastectomy of both breasts, 1985. Physical Findings: A clinical breast exam by your physician is recommended on an annual basis and results should be correlated with mammographic findings. MG 3D Screen Mammo Imp/Cad Bilateral CC and MLO view(s) were taken. Prior study comparison: July 25, 2018, bilateral MG 3d diag mammo imp w/cad AIRAM. There are scattered fibroglandular densities. Finding #1: There is stable architectural distortion in the upper quadrant of both breasts. Finding #2: There are typically benign round calcifications in the left breast. There is no discrete abnormality. Bilateral breast implants redemonstrated. ASSESSMENT: Benign, BI-RAD 2 RECOMMENDATION: Routine screening mammogram of both breasts in 1 year.
== END | disposition home or self-care (01) ==
LOC: RADMAMWWP 02-15 15:34
PROVIDERS: ATTEND Internal Medicine Critical Care Medicine
DX: Z12.31 Encounter for screening mammogram for malignant neoplasm of breast (principal); R92.1 Mammographic calcification found on diagnostic imaging of breast; Z78.0 Asymptomatic menopausal state; Z80.3 Family history of malignant neoplasm of breast
CPT/HCPCS: 77063; 77067

== ENCOUNTER → 2021-06-24 | Outpatient (CLI) | payer MEDICARE | END | disposition home or self-care (01) | LOC: LABWHC1 10:34 | PROVIDERS: ATTEND Internal Medicine Critical Care Medicine | DX: Z53.9 Procedure and treatment not carried out, unspecified reason (principal) ==

== ENCOUNTER → 2022-06-28 | Outpatient (CLI) | payer MEDICARE ==
--- NOTE | 2022-06-28 12:45 | MM ---
Reason for Exam: Screening (asymptomatic). Last screening mammogram was performed 12 month(s) ago. Patient History: Menarche at age 17. First Full-Term at age 37. Late child-bearing (after 30). Postmenopausal. Patient used Hormonal Contraceptives for 10 years. 1985, Bilateral Mastectomy. 2012, Bilateral Implants. Maternal aunt had breast cancer, age 60. Mother had breast cancer, age 45. Risk Values: Bhavna 5 year model risk: 3.0%. NCI Lifetime model risk: 4.3%. Prior Study Comparison: 07/25/2018 Bilateral Diagnostic Mammogram, [facility]. 06/20/2021 Bilateral Screening Mammogram, [facility]. Tissue Density: The breast tissue is heterogeneously dense. This may lower the sensitivity of mammography. Findings: Analyzed By CAD. There is no suspicious group of microcalcifications or new suspicious mass in either breast. Bilateral implants are intact. Overall Assessment: Benign, BI-RAD 2 Management: Screening Mammogram of both breasts in 1 year. A clinical breast exam by your physician is recommended on an annual basis and results should be correlated with mammographic findings. Electronically signed and approved by: Cameron Yap M.D. Radiologis
== END | disposition home or self-care (01) ==
LOC: RADMAMWWP 08:28
PROVIDERS: ATTEND Obstetrics & Gynecology
DX: Z12.31 Encounter for screening mammogram for malignant neoplasm of breast (principal); Z78.0 Asymptomatic menopausal state; Z80.3 Family history of malignant neoplasm of breast; Z90.13 Acquired absence of bilateral breasts and nipples
CPT/HCPCS: 77063; 77067

== ENCOUNTER → 2024-02-28 | Outpatient (CLI) | payer MEDICARE ==
[2024-02-28 12:48] LABS: African American GFR (CKD) >90 (>60 ml/min/1.73 sqM); Blood Urea Nitrogen 18 mg/dL (7-17); Non-African American GFR(CKD) 83 (>60 ml/min/1.73 sqM)
--- NOTE | 2024-02-28 14:49 | CT ---
EXAMINATION TYPE: CT angio chest DATE OF EXAM: 02/28/2024 COMPARISON: None HISTORY: 83-year-old female R06.02, SOB x 3 months TECHNIQUE: Contiguous axial scanning of the chest after the administration of 100 ml mL of Isovue 370 . Coronal/sagittal MIP reconstructions performed. CT DLP: 501mGycm. Automatic exposure control utilized for a dose reduction. FINDINGS: Bilateral breast implants. Heart normal size without pericardial effusion. No refluxing contrast into the hepatic veins. Aorta normal caliber with mild atherosclerotic arch calcifications with conventional arch vessel bran carlita anatomy. Enlarged 2.1 cm right hilar lymph node. Otherwise, no thoracic lymphadenopathy by CT size criteria. A dditional calcified right hilar lymph node compatible with prior granulomatous disease. Satisfactory opacification of the pulmonary pleural system without evidence for pulmonary embolus. Biapical pleural parenchymal scarring. A mild patchy and reticular density at the periphery of the ri ght upper lobe could represent some interstitial scarring or developing mild infiltrate. There is mil d emphysematous change. Additional stranding and reticular change at the lower lung suggesting mild i nterstitial fibrosis and scarring. No other consolidation or pleural effusion. The moderate to large hiatal hernia with half of the stomach in the lower chest. Numerous calcified g ranulomas within the main and one within the left liver lobe. Diverticulum of the second portion of t he duodenum measuring 3.9 cm projecting to the pancreatic head region. Bones: Mild to moderate degenerative disc disease with endplate spondylosis visualized upper lumbar s pine. IMPRESSION: 1. No evidence for pulmonary embolus. 2. COPD with mild emphysema and scattered areas of interstitial scarring. Some patchy reticular densi ty at the periphery of the right upper lobe could represent additional scarring or developing mild in filtrate. Correlate with symptoms. 3. Enlarged right hilar lymph node measuring 2.1 cm may be reactive/post inflammatory. Follow-up CT i n 3 - 6 months to ensure stability/resolution. 4. Moderate to large hiatal hernia with half of the stomach in the lower chest.
== END | disposition home or self-care (01) ==
LOC: RADCTMAIN 12:08
PROVIDERS: ATTEND Internal Medicine Critical Care Medicine
DX: J43.9 Emphysema, unspecified (principal); K44.9 Diaphragmatic hernia without obstruction or gangrene
CPT/HCPCS: 82565; 84520; 71275; 36415; Q9967

== ENCOUNTER → 2024-03-03 | Outpatient (CLI) | payer MEDICARE ==
--- NOTE | 2024-03-26 19:03 | MM ---
Reason for Exam: Screening (asymptomatic). Last mammogram was performed 1 year(s) and 9 month(s) ago. Patient History: Menarche at age 17. First Full-Term at age 37. Late child-bearing (after 30). Postmenopausal. Patient used Hormonal Contraceptives for 10 years. 1985, Bilateral Mastectomy. 2012, Bilateral Implants. Maternal aunt had breast cancer, age 60. Mother had breast cancer, age 45. Risk Values: Bhavna 5 year model risk: 2.9%. NCI Lifetime model risk: 3.8%. Prior Study Comparison: 07/25/2018 Bilateral Diagnostic Mammogram, [facility]. 06/20/2021 Bilateral Screening Mammogram, [facility]. 06/28/2022 Bilateral MG 3D screen mammo imp/cad., [facility]. Tissue Density: There are scattered areas of fibroglandular density. Findings: Analyzed By CAD. There is no suspicious group of microcalcifications or new suspicious mass in either breast. Bilateral retropectoral silicone implants. No significant change from prior exams. Overall Assessment: Benign, BI-RAD 2 Management: Screening Mammogram of both breasts in 1 year. . Patient should continue monthly self-breast exams. A clinical breast exam by your physician is recommended on an annual basis. This exam should not preclude additional follow-up of suspicious palpable abnormalities. Note on Bhavna scores and lifetime risk: 1. A Bhavna score greater than 3% is considered moderate risk. If this is the case, consider specialist referral to assess eligibility for a risk reducing agent. 2. If overall lifetime risk for the development of breast cancer is 20% or higher, the patient may qualify for future screening with alternating mammogram and breast MRI. Electronically signed and approved by: Dl Yang M.D. Radiologist
== END | disposition home or self-care (01) ==
LOC: RADMAMWWP 13:24
PROVIDERS: ATTEND Obstetrics & Gynecology
DX: Z12.31 Encounter for screening mammogram for malignant neoplasm of breast (principal); Z78.0 Asymptomatic menopausal state; Z80.3 Family history of malignant neoplasm of breast; R92.323 Mammographic fibroglandular density, bilateral breasts
CPT/HCPCS: 77063; 77067

== ENCOUNTER → 2024-05-21 | Outpatient (CLI) | payer MEDICARE ==
[2024-05-21 14:32] LABS: African American GFR (CKD) >90 (>60 ml/min/1.73 sqM); Blood Urea Nitrogen 19 mg/dL (7-17); Non-African American GFR(CKD) 80 (>60 ml/min/1.73 sqM)
--- NOTE | 2024-05-21 16:28 | CT ---
EXAMINATION TYPE: CT chest w con CT DLP: 551 mGycm, Automated exposure control for dose reduction was used. DATE OF EXAM: 05/21/2024 4:03 PM COMPARISON: 02/28/2024. CLINICAL INDICATION: Female, 83 years old with history of lung NODULE,; PHH, f/u nodules TECHNIQUE: Multiple axial images were obtained through the chest. Sagittal and coronal reformats were created for review. MIP was performed on a separate workstation. Contrast used:100 mL of Isovue 300 with IV Contrast (None if empty) Oral contrast used: (None if empty) FINDINGS: LUNGS/ PLEURA: No evidence focal consolidation, pneumothorax or pleural effusion. Right perihilar lym ph node remains present measuring up to 16 mm in short axis, previously similar given differences in measuring technique. Right upper lung calcified granulomas. Streaky atelectasis scarring in the right middle lobe medially. Posterior right fat containing Bochdalek hernia. AIRWAY: Patent and unremarkable. HEART: Size within normal limits. MEDIASTINUM: No gross evidence of adenopathy. Large hiatal hernia. VASCULATURE: No aortic aneurysm. MUSCULOSKELETAL: Moderate disc degeneration changes are present throughout the thoracolumbar spine. SOFT TISSUES/LYMPH NODES: Bilateral breast implants. LOWER NECK: No significant findings. UPPER ABDOMEN: Scattered calcifications in the spleen. The gallbladder surgically absent IMPRESSION: 1. Stable right perihilar lymph node etiology remains uncertain. Continued surveillance recommended. No new or enlarging pulmonary nodules. 2. No evidence of chronic granulomatous disease of the spleen. 3. Bilateral breast and bile ducts appear intact. 4. No evidence for pulmonary embolus. 5. Large hiatal hernia. [facility], , 05/21/2024 4:26 PM
== END | disposition home or self-care (01) ==
LOC: RADCTMAIN 13:55
PROVIDERS: ATTEND Internal Medicine Hematology & Oncology
CPT/HCPCS: 36415; 71260; 82565; 84520